=== PATIENT | female | born 1980 | race African-American/Black ===

== ENCOUNTER 2017-06-25 13:59 | Day surgery (SDC) | payer MEDICAID, SELFPAY ==
[2017-06-25] VITALS (7 sets, daily range): BP systolic 127–161; BP diastolic 72–110; PULSE 60–81; RESP 17–18; TEMP 35.9–36.8; O2SAT 98–100; BMI 28.7
--- NOTE | 2017-06-25 15:11 | ED.VISSUMM ---
- ER Visit Summary Date of Service: 06/25/17 Chief Complaint: Suprapubic discomfort and right-sided abdominal/flank pain with nausea, vomiting diarrhea History of Present Illness: The patient is a 37 F who reports abdominal pain that started last evening and had 2 episodes of vomiting and loose watery stools. She denies hematemesis, melena hematochezia. She denies any mucus in the stool. She does complain of dysuria and frequency without hematuria. She states her menses is normally the second week of the month. She does not give any symptoms of . She points to the suprapubic area as area of most discomfort and describes the discomfort as sharp severe with radiation to the back. She points to the right flank. There is no history of renal ureterolithiasis. She denies cough, shortness of breath or difficulty breathing. She denies any chest pain. She denies any rash. Physical Examination: Vital signs are remarkable for a blood pressure 161/110. She appears tachypnic. HEENT exam is remarkable for dry tongue and mucosa. Heart is regular without murmur, gallop or rub. S1 and S2 are normal. Lungs are clear to auscultation with good movement of air bilaterally. Abdomen is soft with tenderness there is no guarding or rebound tenderness. Bowel sounds are diminished. No evidence of umbilical or inguinal hernia. She complains of right CVA tenderness. There is no skin lesions noted. Neuro exam is nonfocal. Test Results: White count is normal with normal differential. Hemoglobin is 11.7, which is baseline. Electrode panel is unremarkable. Urine is a contaminated specimen. Patency test was positive. Serum quant hCG is approximately 1600. Transvaginal ultrasound reveals complex mass right adnexa with complex free fluid and no intrauterine noted. Findings are consistent with a ruptured ectopic . Emergency Department Course and Treatment: Since patient appears ill and clinically dry will administer 1 L of normal saline. She was treated with Zofran and morphine for her nausea and pain. Workup included a CBC, BMP, UA and test. Concerned this may represent renal/ureterolithiasis, urinary tract infection, possible urinary tract infection with obstructing stone, ovarian cyst, ectopic . Doubt appendicitis. Patient was made aware of ultrasound results. Dr. Mckeon who is on-call for METALWORKER was paged. Patient has been made n.p.o. She has not eaten since last night. She has been typed and screened. Treatment Plan: To the operating room Disposition: To the OR and disposition per Dr. Kimberly Mckeon Impression: Ruptured ectopic right adnexa This note was generated with [employer] dictation software. It may contain incorrect words, spelling, and punctuation that were not noted in review of the chart prior to signing ED Disposition - Plan for ED Patient: Chief Complaint: Abd Pain Referrals: Care Physician,No Primary [Primary Care Provider] -
[2017-06-25 15:15] LABS: Red Blood Cells-Urine 0 SEEN /hpf (0-5)
--- NOTE | 2017-06-25 15:15 | ED.DCSUM_ITS ---
- ER Visit Summary Date of Service: 06/25/17 Chief Complaint: Suprapubic discomfort and right-sided abdominal/flank pain with nausea, vomiting diarrhea History of Present Illness: The patient is a 37 F who reports abdominal pain that started last evening and had 2 episodes of vomiting and loose watery stools. She denies hematemesis, melena hematochezia. She denies any mucus in the stool. She does complain of dysuria and frequency without hematuria. She states her menses is normally the second week of the month. She does not give any symptoms of . She points to the suprapubic area as area of most discomfort and describes the discomfort as sharp severe with radiation to the back. She points to the right flank. There is no history of renal ureterolithiasis. She denies cough, shortness of breath or difficulty breathing. She denies any chest pain. She denies any rash. Physical Examination: Vital signs are remarkable for a blood pressure 161/110. She appears tachypnic. HEENT exam is remarkable for dry tongue and mucosa. Heart is regular without murmur, gallop or rub. S1 and S2 are normal. Lungs are clear to auscultation with good movement of air bilaterally. Abdomen is soft with tenderness there is no guarding or rebound tenderness. Bowel sounds are diminished. No evidence of umbilical or inguinal hernia. She complains of right CVA tenderness. There is no skin lesions noted. Neuro exam is nonfocal. Test Results: White count is normal with normal differential. Hemoglobin is 11.7, which is baseline. Electrode panel is unremarkable. Urine is a contaminated specimen. Patency test was positive. Serum quant hCG is approximately 1600. Transvaginal ultrasound reveals complex mass right adnexa with complex free fluid and no intrauterine noted. Findings are consistent with a ruptured ectopic . Emergency Department Course and Treatment: Since patient appears ill and clinically dry will administer 1 L of normal saline. She was treated with Zofran and morphine for her nausea and pain. Workup included a CBC, BMP, UA and test. Concerned this may represent renal/ureterolithiasis, urinary tract infection, possible urinary tract infection with obstructing stone , ovarian cyst, ectopic . Doubt appendicitis. Patient was made aware of ultrasound results. Dr. Mckeon who is on-call for OB /INSURANCE CLAIMS PROCESSOR was paged. Patient has been made n.p.o. She has not eaten since last night. She has been typed and screened. Treatment Plan: To the operating room Disposition: To the OR and disposition per Dr. Kimberly Mckeon Impression: Ruptured ectopic right adnexa This note was generated with [employer] dictation software. It may contain incorrect words, spelling, and punctuation that were not noted in review of the chart prior to signing ED Disposition - Plan for ED Patient: Chief Complaint: Abd Pain Referrals: Care Physician,No Primary [Primary Care Provider] -
[2017-06-25 15:19] LABS: Absolute Lymphocyte Count 2.78 X10^3/ul (0.83-4.51); Absolute Neutrophil Count 4.3 X10^3/uL (2.0-7.7); Basophil# 0.01 X10^3/uL; Basophil% 0.1 % (0-1); Hematocrit 36.7 % (37-47); Hemoglobin 11.7 g/dl (12.0-15.0); Lymphocyte # 2.78 X10^3/ul (4.0); Mean Corp Hgb Conc 31.9 g/gl (32-36); Mean Corpuscular Hgb 28.3 pg (27.0-32.0); Mean Corpuscular Volume 88.6 fL (81-99); Mean Platelet Vol. 8.9 fl (6.2-12.0); Monocyte# 0.43 X10^3/uL; Monocyte% 5.7 % (0-10); Neutrophil # 4.28 X10^3/uL (2.7-7.7); Neutrophil % 57.1 % (47-70); Platelet Count 277 K/mm3 (150-450); RBC Distribution Width CV 13.5 % (11.6-14.6); RBC Distribution Width SD 43.9 fl (35.1-43.9); Red Blood Count 4.14 M/mm3 (4.2-5.4); White Blood Count 7.5 K/mm3 (4.4-11.0)
[2017-06-25 15:21] LABS: Color, Urine Yellow (Yellow); Glucose, Dipstick Normal (Normal); Ketone-Dipstick Negative (Negative); Leukocyte Esterase-Dipstick 500 /ul (Negative); Nitrite-Dipstick Negative (Negative); Occult Blood-Urine 10 /ul (Negative); Protein-Dipstick 30 mg/dl (Negative); Specific Gravity, Urine 1.025 (1.002-1.030); Urine Bilirubin Dipstick Negative (Negative); Urine Clarity Clear (Clear); Urine Urobilinogen Normal (Normal)
[2017-06-25 15:25] LABS: POSITIVE COUNT NO; POSITIVE DIFFERENTIAL NO; POSITIVE MORPHOLOGY NO
[2017-06-25 15:30] LABS: Mucous, Urine 1+ /hpf (<or=2+); Squamous Epithelial Cells - UA 10-25 SEEN /hpf (5-10); White Blood Cells 0-5 SEEN /hpf (0-5)
[2017-06-25] MEDS: 0.9% Normal Saline 1,000 ML 1000 ML IV (15:36)
[2017-06-25] MEDS: Ondansetron 4 MG/2 ML Vial IV (15:36)
[2017-06-25 15:44] LABS: Anion Gap 9 (5-15); BUN 10 mg/dL (7-18); BUN/Creat Ratio 11.2 RATIO (10-20); Calcium,Total 8.5 mg/dL (8.5-10.1); Chloride 102 mmol/L (98-107); EST Glomerular Filtration Rate 76 mL/min (>60); Est Glom Filt Rate - Afr Amer 92 mL/min (>60); Estimated Creatinine Clearance 65.84 ml/min; Glucose 101 mg/dL (70-110); Potassium 3.9 mmol/L (3.5-5.1); Sodium Level 135 mmol/L (136-145)
[2017-06-25 16:06] LABS: Pregnancy, Serum, hCG Quali. POSITIVE Negative (0-9 Nonpreg)
[2017-06-25] MEDS: Dicyclomine 10 MG Capsule 20 MG PO (16:25)
--- NOTE | 2017-06-25 16:30 | US_ITS ---
US OB Transvaginal INDICATION: RLQ PAIN COMPARISON: None TECHNIQUE: Ultrasonographic grayscale and limited Doppler investigation of the pelvic structures by a transvaginal approach FINDINGS: The uterus measures 10 x 6.5 x 4.4 cm with a 1.2 cm endometrial stripe. The ovaries are not visualized. There is a heterogenous 6.2 x 4.1 x 4.3 cm mass in the right adnexal region. Moderate amount of complex free fluid is seen in the pelvis. US/Transvaginal w/Preg US IMPRESSION: Uterus appears grossly unremarkable. Ovaries are not visualized. Heterogeneous 6.2 x 4.1 x 4.3 cm mass in the right adnexal region. Its further evaluation with cross-sectional imaging is recommended. Etiology is uncertain. Moderate amount of complex free fluid. at 1724 Reported and signed by: Jeimy Watts MD Electronically Signed: Jeimy Watts MD at 16:23 EST Tel , Service support ,
[2017-06-25 16:34] LABS: hCG Titer Quant., Serum 1598 mIU/mL (<9 non-preg)
--- NOTE | 2017-06-25 17:57 | NURSING ---
DR VARGHESE IN ER
--- NOTE | 2017-06-25 18:30 | FAL_PTH ---
PATIENT: CARLO HAWK[place] [facility] [id number] AGE/SX: 37/F ROOM: RE06/25/[address]: Dr. Kimberly Mckeon MD : 1980 BED: DIS: 06/25/2017 SPEC #: [id number] RECD: 06/28/17 12:24 STATUS: FOUZIADevonte POSEY #: [id number] MARLENE: 06/25/17 18:[address]: Kimberly Mckeon DEPT: SURGICAL PATHOLOGY RECD BY: Jerry Dobson ENTERED: 06/28/17 12:24 SP TYPE: ECTOPIC OTHR DR: No Primary Care Phys Tissues: ECTOPIC PREG Procedures: Surgery Specimen Level IV HEADER OPERATION: Laparoscopic, removal ectopic PRE-OP DIAGNOSIS: Ruptured ectopic TISSUE SUBMITTED: Right fallopian tube MICROSCOPIC DIAGNOSIS Right fallopian tube, salpingectomy: Intraluminal chorionic villi and trophoblastic cells consistent with intratubular . AM:sofia 06/29/17 MICROSCOPIC DESCRIPTION Slides are reviewed. GROSS DESCRIPTION Received in fixative is one container labeled with the patient's name and designated right fallopian tube. The specimen consists of a fallopian tube measuring 4.5 cm in length and 1 cm in average diameter. A normal fimbriated end is present. Serial sections do not reveal mass lesions. The specimen is serially sectioned and totally submitted in two cassettes. / AM:sofia 06/28/17 TC:5 CPT: 04247
[2017-06-25] MEDS: Bupivacaine Mpf 0.5% 30 ML VIAL (19:14)
--- NOTE | 2017-06-25 19:48 | PCM.DC ---
You will use the following diet at home:: No restrictions Discharge Activity: May not drive while taking narcotic pain medications., May Shower, May Take a Tub Bath Return to work on:: 06/28/17 May resume sexual activity in: 1 week Lifting Restrictions: 20 lb or less for 2 wks. Call your doctor if you observe: Fever of 101 or Higher, Inability to have a bowel movement, Using more than one pad per hour, Calf discomfort, Uncontrolled pain Change Dressing in (Days):: 14 Remove Dressing in (days):: 14 Cleanse incision/area with: Soap & Water, Keep Dressing Clean & Dry Allergies/Adverse Reactions: Allergies naproxen Allergy (Verified 06/25/17 13:59) Rash shellfish derived Allergy (Verified 06/25/17 13:59) Swelling venom-honey bee [bee venom (honey bee)] Allergy (Verified 06/25/17 13:59) Swelling Medications to take at Discharge Docusate Sodium [Colace] 100 mg PO BID PRN PRN #30 cap 06/25/17 Hydrocodone/Acetaminophen [[place] 5-325 Tablet] 1 ea PO Q6H PRN PRN #10 tab 06/25/17 The following prescriptions were given: Hydrocodone/Acetaminophen [[place] 5-325 Tablet] 1 ea PO Q6H PRN PRN #10 tab PRN Reason: Mod-Severe Pain (4-10/10) Docusate Sodium [Colace] 100 mg PO BID PRN PRN #30 cap PRN Reason: Constipation Primary Care Physician: Care Physician,No Primary [Primary Care Provider] - Please Follow Up With: Kimberly Mckeon MD - [phone] When: 2 wk for postop check up Proposed Discharge Date: 06/25/17
--- NOTE | 2017-06-25 19:54 | DCINST_ITS ---
You will use the following diet at home:: No restrictions Discharge Activity: May not drive while taking narcotic pain medications., May Shower, May Take a Tub Bath Return to work on:: 06/28/17 May resume sexual activity in: 1 week Lifting Restrictions: 20 lb or less for 2 wks. Call your doctor if you observe: Fever of 101 or Higher, Inability to have a bowel movement, Using more than one pad per hour, Calf discomfort, Uncontrolled pain Change Dressing in (Days):: 14 Remove Dressing in (days):: 14 Cleanse incision/area with: Soap & Water, Keep Dressing Clean & Dry Allergies/Adverse Reactions: Allergies naproxen Allergy (Verified 06/25/17 13:59) Rash shellfish derived Allergy (Verified 06/25/17 13:59) Swelling venom-honey bee [bee venom (honey bee)] Allergy (Verified 06/25/17 13:59) Swelling Medications to take at Discharge Docusate Sodium [Colace] 100 mg PO BID PRN PRN #30 cap 06/25/17 Hydrocodone/Acetaminophen [[place] 5-325 Tablet] 1 ea PO Q6H PRN PRN #10 tab 06/25 The following prescriptions were given: Hydrocodone/Acetaminophen [[place] 5-325 Tablet] 1 ea PO Q6H PRN PRN #10 tab PRN Reason: Mod-Severe Pain (4-10/10) Docusate Sodium [Colace] 100 mg PO BID PRN PRN #30 cap PRN Reason: Constipation Primary Care Physician: Care Physician,No Primary [Primary Care Provider] - Please Follow Up With: Kimberly Mckeon MD - [phone] When: 2 wk for postop check up Proposed Discharge Date: 06/25/17
[2017-06-25] MEDS: Ibuprofen 400 MG Tablet PO (20:42)
[2017-06-25] MEDS: HYDROcodone Bitartrate/Apap 5/325 Tablet PO (20:43)
--- NOTE | 2017-06-26 08:53 | OP.PCM_ITS ---
Operative Report Date of Procedure: 06/25/17 Date of Procedure: 06/25/2017 PROCEDURE: Laparoscopic Right Salpingectomy Evacuation of hemoperitoneum PREOPERATIVE DIAGNOSIS: Ectopic , Right fallopian tube Hemoperitoneum POSTOPERATIVE diagnosis: Ectopic , Right fallopian tube Hemoperitoneum Surgeon: Kimberly Mckeon MD Anesthesia: general anesthesia. Yesenia Candelario MD EBL: minimal for the case Complications: None Drains: Red Pagan catheter used to drain the bladder prior to initiation of the case and after the case, for approximately 125 cc of clear yellow urine. Fluids: LR replacement Findings; Normal appearing, anteverted uterus. Left fallopian tube and ovary and R ovary are WNL. There is blood in the pelvis anterior to the uterus and posterior to the uterus, and at the R adnexa. The R fallopian tube is dilated. Ectopic , R fallopian tube. Gross inspection of bowel, omentum. liver edge WNL. Photos were taken of the uterus and ovaries before and after the right salpingectomy Narrative account: After the risks, benefits, alternatives of procedure had been reviewed with the patient, informed consent was obtained. The patient was taken back to the Operating room with an IV running. she was positioned on the operating table in dorsal supine position, where she was given general anesthesia. Once asleep she was repositioned to the dorsal lithotomy position and prepped and draped in the usual sterile fashion. A red Pagan catheter was used to drain the bladder prior to initiating the case. Attempted placement was made of a single toothed tenaculum with Sid cannula, but this could not be accomplished due to cervical stenosis. As the uterus was anteverted on exam under anesthesia , a sponge stick was placed into the vaginal to allow manipulation of the uterus and cervix during the case. Attention was then turned to the anterior abdominal wall where 0.5 % Marcaine with epinephrine was instilled at the suprapubic and infraumbilical skin and at a point midway between in the midline. Skin incisions were then created in the midline at the suprapubic skin and at the infraumbilical skin and midway between the two. While maintaining upward traction of the anterior abdominal wall a Veress needle was inserted through the umbilical incision into the peritoneal cavity. There was free drop of saline, low opening pressure and free flow of CO2 noted. Once the intraabdominal pressure had reached approximately 12 mm of mercury the Veress needle was removed and a bladeless 5 mm trocar was placed through infraumbilical skin incision into the peritoneal cavity. Correct placement was confirmed using the scope. Under direct visualization then with the patient in Trendelenburg position, a bladeless 5 mm trocar was inserted in through suprapubic skin incision into the peritoneal cavity and at a point midway between the infraumbilical and suprapubic trocars. The uterus as anteverted and both ovaries and the left fallopian tubes were WNL. The R fallopian tube was dilated and there was blood and clot in the pelvis and R adnexa due to the ectopic . The hemoperitoneum was partially evacuated to expose the R fallopian tube. The right fallopian tube was grasped and retracted medially and using a LigaSure device the fallopian tube was excised from the ovary and mesosalpinx. Excellent hemostasis was noted at the excision site and photos were taken. At this point there remained a large amount of clotted blood within the pelvis and a larger suction aspirator tip was needed. The suprapubic 5 mm trocar was removed and the incision extended to allow a 10-12 mm bladeless trocar. The trocar was placed into the abdominal cavity under direct visualization. The clot was then aspirated and the pelvic and abdomen irrigated to complete the evacuation of the blood from the pelvis. The R fallopian tube was brought through the suprapubic trocar and set aside for later pathology review. In a similar manner the L fallopian tube was aspirated with the larger suction aspiration tip, and removed from the abdominal cavity through the suprapubic trochar. The Right Fallopian tube was sent to pathology. Excellent hemostasis was noted by visualization of the pelvis, ovaries, and remaining mesosalpinx. Photos were taken of the uterus and ovaries and left fallopian tube. At this point the the procedure was terminated. The pneumoperitoneum was reduced and the instruments and trocars were removed from he the anterior abdominal wall skin. The suprapubic fascia was closed with 2-0 Vicryl. The skin incisions were closed with 4-0 Monocryl in a subcuticular fashion. Steristrips and OpSites were applied to the skin. The sponge stick was removed from the vagina. A red Pagan catheter was used again to drain the bladder after the case, and clear yellow urine returned. The patient was returned to dorsal supine position. She was awakened from general anesthesia. She was transferred to the recovery room bed in stable condition after tolerating the procedure well. Sponge, lap, needle and instrument counts were correct x two. Medications given preop and intraoperatively included: 10 cc of 1/2 % Marcaine with epinephrine --used as a subcutaneous block. For a complete listing of medications given preop and intraop , please see the anesthesia record.
--- NOTE | 2017-06-26 09:04 | HP.PCM_ITS ---
(1) Abdominal pain Status: Acute Qualifiers: Abdominal location: right lower quadrant Qualified Code(s): R10.31 - Right lower quadrant pain (2) Ectopic , tubal Status: Acute Qualifiers: Intrauterine status: without intrauterine Laterality: right Qualified Code(s): O00.101 - Right tubal without intrauterine History Date of Admission: 06/25/17 Gestational age: 7 History of this : 37 yo AB 2 female at 7 wk EGA by LMP during the first week of April. Presented to ED due to acute onset of pain in RLQ. Sent in by her employer. States pain improved after pain medication given in the emergency department. Would like to go home. Last PO intake was last night (Prior to presentation to ER) Tried to eat but nausea and vomited the meal. no fevers. Pertinent Past Medical History: Past Medical History: HTN but not on medications because they don't work. Denies any other medical problems or history. Past Surgical history: Negative. 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 Menarche at 14 yo and period reported as regular, but LMP first week of Apr 2017 Family History: HTN Cancers: grandfather with colon cancer; aunt with breast cancer; another aunt with stomach cancer Allergies naproxen Allergy (Verified 06/25/17 13:59) Rash shellfish derived Allergy (Verified 06/25/17 13:59) Swelling venom-honey bee [bee venom (honey bee)] Allergy (Verified 06/25/17 13:59) Swelling None. Smoking Status: Light Smoker (<10/day) Alcohol: Occasional Drug Use: none - denies Number of Fetus(es): 0 - No IUP noted. Adnexal mass noted in R adnexa Review of Systems Constitutional: Denies: Fever HEENT: Denies: Difficulty Hearing Cardiovascular: Denies: Chest Pain Respiratory: Denies: Shortness of Breath Gastrointestinal: Reports: Abdominal Pain - RLQ Genitourinary: Denies: Dysuria Psychiatric: Denies: Anxiety, Depression Physical Exam Vitals: Vital Signs Temp Pulse Resp BP Pulse Ox 97.6 F L 73 18 142/97 H 100 06/25/17 20:17 06/25/17 20:17 06/25/17 20:17 06/25/17 20:17 06/25/17 20:17 General: Alert, Oriented x3, Cooperative, No apparent distress Cardiovascular: Regular rate Lungs: Clear to auscultation Abdomen: Soft - tender in lower abdomen with some guarding. Extremities:: No clubbing, No cyanosis, No edema Cervix Dilation (cm): 0 - pelvic deferred d/t ectopic dx in ED and on sono Assessment/Plan Ectopic , RLQ. Quant 1598 mIU/ml SONO: uterus measures 10 x 6.5 x 4.4 cm with a 1.2 cm endometrial stripe. The ovaries are not visualized. NO IUP NOTED. There is a heterogenous 6.2 x 4.1 x 4.3 cm mass in the right adnexal region. Moderate amount of complex free fluid is seen in the pelvis. Advised pt of findings and need for surgery. Advised that this is a nonviable , growing in her fallopian tube and at risk of rupture, causing hemorrhage and even potential if not treated. Recommended L/S for evacuation of hemoperitoneum and R salpingectomy to remove the ectopic . R,B,alternatives discussed. Reviewed potential need for blood if severe hemorrhage noted. All questions answered to patient's satisfaction: Consents signed including to give blood if necessary to preserve life. Proceed with diagnostic laparoscopy, R salpingectomy, evacuation of blood/clot and ectopic . Advised re anticipated preop, operative and postop recovery including need for local bulk driver to take her home from hospital and need to be off work for a few days to recover
== END 2017-06-25 20:53 | disposition home or self-care (01) ==
LOC: ED 15:30 → SDC 18:08 → AC 18:09
PROVIDERS: Emergency Provider Emergency Medicine; Visit Provider Obstetrics & Gynecology
PROC: 10T24ZZ Resection of Products of Conception, Ectopic, Percutaneous Endoscopic Approach (ICD-10-PCS; CPT 59150; principal; 2017-06-25 18:30)
DX: O00.101 Right tubal pregnancy without intrauterine pregnancy (principal); K66.1 Hemoperitoneum; O10.911 Unspecified pre-existing hypertension complicating pregnancy, first trimester; O99.211 Obesity complicating pregnancy, first trimester; Z68.28 Body mass index [BMI] 28.0-28.9, adult; O99.331 Smoking (tobacco) complicating pregnancy, first trimester; F17.200 Nicotine dependence, unspecified, uncomplicated; Z3A.01 Less than 8 weeks gestation of pregnancy
CPT/HCPCS: 00840; 59151; 76817; 80048; 81001; 84702; 84703; 85025; 86850; 86900; 88305; 93976; 99282; J7030; A4216; J2405

== ENCOUNTER 2022-04-14 05:00 | Emergency (ER) | payer MEDICAID, SELFPAY ==
[2022-04-14 05:02] VITALS: BP 170/107; PULSE 59; RESP 10; TEMP 36; O2SAT 100; BMI 28.1
--- NOTE | 2022-04-14 05:15 | EDS_ITS ---
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 Does have a history of drug use in the past. States she smoked marijuana yesterday and she has had a history of cocaine use in the past. She denies but reportedly someone called 911 from her house since she was unresponsive after drug overdose. She denies any IV drugs. When the police arrived she was unresponsive. She was given Narcan 2 mg 3 times for a total 6 mg. She began waking up. There was a pill bottle of unknown pills around her. She denies any recent illness or complaints. Prior similar symptoms: No Recent Illness/Hospitalization: No PFSH PFSH Medical History no medical history no medical history Home Medications NK 04/14/22 [History Last Taken Unknown] Allergy/AdvReac Type Severity Reaction Status Date / Time naproxen Allergy Rash Verified 04/14/22 05:11 shellfish derived Allergy Swelling Verified 04/14/22 05:11 venom-honey bee Allergy Swelling Verified 04/14/22 05:11 [bee venom (honey bee)] Surgical History no surgical history no surgical history Social History Smoking Status: Current every day smoker tobacco type: cigarettes ROS ROS ED ROS Narrative Patient denies recent illness. Review of Systems ROS Unobtainable: Denies due to encephalopathy Constitutional Constitutional ED: Denies chills or fever(s) Eyes Eyes: Denies blurry vision ENT ENT ED: Denies ear pain Cardiovascular Cardiovascular: Denies chest pain Respiratory/Chest Respiratory/Chest: Denies cough or dyspnea Gastrointestinal Gastrointestinal: Reports nausea; Denies abdominal pain, constipation, diarrhea, melena or vomiting Genitourinary Genitourinary ED: Denies dysuria Musculoskeletal Musculoskeletal: Denies arthralgias Integumentary Denies abscess Neurologic Neurologic: Denies headache(s) Psychiatric Psychiatric: Denies anxiety or depression Endocrine Endocrinology: Denies cold intolerance Hematologic/Lymphatic Hematologic/Lymphatic: Denies easy bleeding Allergic/Immunologic Allergic/Immunologic ED: Denies mouth swelling or tongue swelling EXAM Physical Exam Narrative Exam Narrative: 42-year-old female no acute distress. Vital signs stable. She is afebrile. Her pulse ox is 100 % On room air no hypoxia. H EENT exam unremarkable atraumatic. Pupils round reactive light. Neck nontender no JVD. No lymphadenopathy. Lungs clear to auscultation bilaterally. Heart regular rhythm rate about 60 no murmur. Chest wall nontender. Abdomen soft nontender. Moving all 4 extremities. Nontender no edema. Skin is diaphoretic. Neurologically she is awake alert. Answering questions and following commands. Const Vital Signs: 04/14/22 05:02 04/14/22 05:12 04/14/22 05:16 Temperature 96.8 F L Temperature Source Temporal Pulse Rate 59 L 64 Respiratory Rate 10 L 18 Respiratory Effort Normal Non-Labored Respiratory Pattern Normal Blood Pressure 170/107 H 178/97 H Blood Pressure Mean 128 124 Pulse Ox 100 96 Oxygen Delivery Method Room Air Room Air Positive well nourished and well developed; Negative for obese, cachectic, contractures or unkempt General Appearance ED: well developed and NAD; Negative for unkempt, cachectic, contractures or pallor Nutritional Appearance: Negative for cachectic or obese HEENT Reports moist mucous membranes atraumatic; Negative for trauma or tenderness Eyes PERRL and EOMs intact bilaterally General Eye ED: Negative for pale conjunctiva or scleral icterus Neck no lymphadenopathy, supple and no JVD Thyroid: Negative for tender Chest Wall inspection of chest normal and palpation of chest normal Chest: Negative for other Resp normal respiratory effort and clear to auscultation bilaterally Effort and Inspection: Negative for retractions Auscultation: Negative for rales, rhonchi or wheezes Cardio regular rate, regular rhythm, S1 normal heart sound, S2 normal heart sound and no murmurs Rate: Negative for bradycardia or tachycardic Rhythm: Negative for abnormal rhythm Bruits: Negative for other GI soft to palpation, non-tender, non-distended and no masses Inspection: Negative for abdominal distention Auscultation: Negative for hyperactive bowel sounds Palpation: Negative for tender or guarding Back/Spine no CVA tenderness General Back: Negative for CVA tenderness Cervical Spine: Negative for cervical spine tenderness Thoracic Spine / Upper Back: Negative for thoracic spinal tenderness Lumbar Spine / Lower Back: Negative for lumbar spinal tenderness Coccyx: Negative for swelling Extremity General Extremety ED: Negative for edema or tenderness General Extremity: Negative for edema Neuro oriented x3 Sensorium / Orientation: alert, oriented to person, oriented to place and oriented to time; Negative for confused, lethargic or stuporous Speech: speech normal Motor Exam: strength 5/5 throughout Psych mental status grossly normal and thought process normal Appearance: Negative for unkempt Attitude: No belligerent, No agitated, No aggressive and No hostile Mood & Affect: Negative for depressed, anxious or tearful Skin Skin Narrative: Diaphoretic. No rashes. No track lundberg. General Skin Exam: Negative for jaundice or pallor Lesions: no lesions Rashes: no rashes Trauma: Negative for abrasion or laceration MDM MDM MDM Narrative Medical decision making narrative: 42-year-old with accidental opiate overdose. Treated by police with Narcan. Exam now is benign. Blood sugar be obtained. She will be observed and then I believe she is under arrest by the police. Patient doing well at 5:53 AM on repeat exam. She will be discharged to home. I believe she is under arrest and will be taken by the police to alf. Lab Data Attestation: I reviewed the patient's lab results. Lab results narrative: BGT was 158. Labs: Laboratory Results - last 24 hr 04/14/22 05:15 POC Glucose 158 H Discharge Plan Triage Chief Complaint: Overdose ED Provider: Cheng Wilson Dx/Rx/DC Orders Clinical Impression: Opiate overdose Instructions: ED Drug Abuse Prescriptions: No Action NK Primary Care Provider: Care Physician,No Primary Referrals: Myron Davis MD [Non-Staff] - As soon as possible Care Physician,No Primary [Primary Care Provider] - Activity Restrictions/Additional Instructions: Follow-up with your doctor [facility] [place]. Consider detox and drug counseling at [facility]. Disposition Disposition: Home, Self Care
[2022-04-14 05:16] VITALS: BP 178/97; PULSE 64; RESP 18; O2SAT 96
[2022-04-14 05:36] LABS: Bedside Glucose 158 mg/dL (74-106)
== END 2022-04-14 06:21 | disposition home or self-care (01) ==
LOC: ED 06:03
PROVIDERS: Emergency Provider Emergency Medicine; Visit Provider Emergency Medicine
DX: T40.2X1A Poisoning by other opioids, accidental (unintentional), initial encounter (principal); F17.210 Nicotine dependence, cigarettes, uncomplicated; F12.90 Cannabis use, unspecified, uncomplicated
CPT/HCPCS: 82962; 99285

== ENCOUNTER 2024-07-02 17:19 | Emergency (ER) | payer MEDICAID, SELFPAY ==
[2024-07-02 17:20] VITALS: BP 155/98; PULSE 122; RESP 20; TEMP 36.4; O2SAT 100; BMI 25.9
--- NOTE | 2024-07-02 17:52 | CT_ITS ---
PROCEDURE: BRAIN/HEAD WITHOUT CONTRAST REASON FOR EXAM: Intermittent right-sided headache for 1 week. TECHNIQUE: Contiguous axial scans of 3.75 mm slice thicknesses with sagittal and coronal reconstruction images. One or more dose reduction techniques were used (e.g., automated exposure control, adjustment of mA and/or kv according to patient size, use of iterative reconstruction technique). IV CONTRAST: Not given. COMPARISON: None. FINDINGS: No intraparenchymal hemorrhage. No abnormal areas of encephalomalacia. No mass effect or midline shift. Simmons-white matter differentiation is normal. Ventricles and cisterns are appropriately size for patient's age. No extra-axial fluid collections. Cerebellum and posterior fossa unremarkable. Paranasal sinuses normal. Mastoid air cells are normal. Calvarium unremarkable. Soft tissues unremarkable. CT/Brain/Head without Contrast IMPRESSION: No acute intracranial abnormalities are demonstrated. Reading Location: [facility]
--- NOTE | 2024-07-02 17:56 | EX.ED.DYSGE1 ---
HPI <SIGIFREDO Malone - Last Filed: 07/02/24 22:12> History of Present Illness Chief Complaint: Numb/Ting Narrative Narrative: 44-year-old female with past medical history of hypertension states over the last week she has had intermittent numbness/tingling to her right arm and right leg. She has episodes lasting about 15 minutes multiple times a day where her right arm feels tingling like it is asleep from the shoulder to the elbow. It includes the entire upper arm area but does not radiate below the elbow. She has the same tingling sensation in the right outer thigh. She has no associated weakness. Over the last 3 days she also complains of a left temporal headache. No visual change or speech changes. No nausea or vomiting. No fever chills neck pain or stiffness. She complains of feeling nauseated with decreased appetite but denies abdominal pain or diarrhea. PFSH <SIGIFREDO Malone - Last Filed: 07/02/24 22:12> PFSH Medical History no medical history Home Medications ?Medication ?Instructions ?Recorded ?Last Taken ?Type NK 04/14/22 Unknown History Allergy/AdvReac Type Severity Reaction Status Date / Time naproxen Allergy Rash Verified 04/14/22 05:11 shellfish derived Allergy Swelling Verified 04/14/22 05:11 venom-honey bee (bee venom Allergy Swelling Verified 04/14/22 05:11 (honey bee)) Social History Smoking Status: Current every day smoker tobacco type: cigarettes ROS <SIGIFREDO Malone Last Filed: 07/02/24 22:12> ROS ED ROS Narrative Constitutional: Negative for fever, chills, malaise. Eyes: Negative for visual change. CVS: Negative for chest pain. Respiratory: Negative for shortness of breath, cough. GI: Negative for abdominal pain, nausea, vomiting. Neuro: Positive for headache. EXAM <SIGIFREDO Malone Last Filed: 07/02/24 22:12> Physical Exam Narrative Exam Narrative: CONST: Patient sitting in no acute distress. EYES: Normal inspection. PERRL, EOMI. ENT: Normal inspection, moist mucous membranes. NECK: Normal inspection. No meningismus. RESP: No respiratory distress, CTAB. CVS: Regular rate and rhythm, no murmur, no gallop. ABD: Soft and nontender, no guarding or rebound, nondistended. SKIN: Color normal, no rash, warm, dry, intact. EXTREMITIES: Normal appearance, no pedal edema. NEURO: Alert and answering questions appropriately. 5/5 upper and lower extremity strength, normal sensation, normal finger-nose and [id number]. No drift. No dysarthria or aphasia. PSYCH: Normal affect. Const Vital Signs: 07/02/24 17:20 07/02/24 19:46 Temperature 97.5 F L Temperature Source Temporal Pulse Rate 122 H 105 H Respiratory Rate 20 H 18 Blood Pressure 155/98 H 137/86 H Blood Pressure Mean 117 103 Pulse Ox 100 99 Oxygen Delivery Method Room Air Room Air <Dr. Malou Noble DO - Last Filed: 07/11/24 12:41> Physical Exam Const Vital Signs: 07/02/24 17:20 07/02/24 19:46 Temperature 97.5 F L Temperature Source Temporal Pulse Rate 122 H 105 H Respiratory Rate 20 H 18 Blood Pressure 155/98 H 137/86 H Blood Pressure Mean 117 103 Pulse Ox 100 99 Oxygen Delivery Method Room Air Room Air MDM <SIGIFREDO Malone - Last Filed: 07/02/24 22:12> [facility] Narrative Medical decision making narrative: Patient reports intermittent paresthesias to her right arm in the humeral region and the right outer thigh. She also reports a few days of a headache. She is awake and alert in no distress. BP 155/98, HR 122, otherwise normal vital signs. She has a completely normal neurological exam with NIH of 0. Labs show normal white count of 7.7. Stable hemoglobin 11.8. Sodium is 129, otherwise normal chemistry panel. test negative. Her hyponatremia could be from her hydrochlorothiazide. CT brain shows no acute findings. I do not think her symptoms match with the stroke presentation. She does have a sister who has multiple sclerosis and I discussed the possibility of demyelinating disease. She will follow-up with her primary care doctor and neurology but was told to return if symptoms worsen. She was comfortable with this plan and discharged in stable condition. Lab Data Attestation: I reviewed the patient's lab results. Labs: Laboratory Results - last 24 hr 07/02/24 18:12 WBC 7.7 RBC 4.20 Hgb 11.8 L Hct 36.6 L MCV 87.1 MCH 28.1 MCHC 32.2 RDW Std Deviation 43.9 RDW Coeff of Randi 13.9 Plt Count 406 MPV 9.0 Immature Gran % (Auto) 0.100 Neut % (Auto) 53.0 Lymph % (Auto) 37.2 [place] % (Auto) 8.4 Eos % (Auto) 0.9 Baso % (Auto) 0.4 Absolute Neuts (auto) 4.1 Absolute Lymphs (auto) 2.88 Nucleated RBC % 0 Sodium 129 L Potassium 4.0 Chloride 96 L Carbon Dioxide 23.0 Anion Gap 10 BUN 11 Creatinine 0.88 Estim Creat Clear Calc 73.32 Est GFR (MDRD) Af Amer 90 Est GFR (MDRD) Non-Af 74 BUN/Creatinine Ratio 12.4 Glucose 77 Calcium 9.1 Serum , Qual NEGATIVE Radiography Diagnostic Testing: Clinical Impression(s) from Imaging Studies Brain CT 07/02/24 17:52 IMPRESSION: No acute intracranial abnormalities are demonstrated. Reading Location: [facility] <Dr. Malou Noble, DO - Last Filed: 07/11/24 12:41> [facility] MDM Narrative Medical decision making narrative: Patient reports intermittent paresthesias to her right arm in the humeral region and the right outer thigh. She also reports a few days of a headache. She is awake and alert in no distress. BP 155/98, HR 122, otherwise normal vital signs. She has a completely normal neurological exam with NIH of 0. Labs show normal white count of 7.7. Stable hemoglobin 11.8. Sodium is 129, otherwise normal chemistry panel. test negative. Her hyponatremia could be from her hydrochlorothiazide. CT brain shows no acute findings. I do not think her symptoms match with the stroke presentation. She does have a sister who has multiple sclerosis and I discussed the possibility of demyelinating disease. She will follow-up with her primary care doctor and neurology but was told to return if symptoms worsen. She was comfortable with this plan and discharged in stable condition. I have personally performed a face to face assessment of the patient and have reviewed the ANJEL Note. I performed a substantive portion of the visit including all aspects of the following. My jung findings include: Patient is a 44-year-old female with history of hypertension presenting with intermittent numbness and tingling of her right arm, her right thigh as well as a left-sided headache. This been going on for 1 week and headaches been going on for 3 days. It did not always occur at the same time. They will generalized about 15 minutes at a time. Patient sister does have MS but patient denies any history of any MS or neurologic diagnosis. Does report significant increase stress at home recently. Patient is have hypertension for which she takes hydrochlorothiazide for. Vital signs significant for mild hypertension in the ER with initial blood pressure 155/96 but does normalize in the ER without further intervention. She is tachycardic on arrival with a heart rate of 122 and a repeat is 105. Patient is well-appearing on exam. As she has a normal neurologic exam with normal sensation in all extremities. Normal strength with no drift. Normal coordination. No slurred speech. No facial droop appreciated. Lungs are clear to auscultation bilaterally. No peripheral edema appreciated. CT of the brain is obtained does not show any acute process. Given that this is been going on for a week have a much lower suspicion for TIA or stroke especially with no subacute or acute process on the CT. No signs of intracranial hemorrhage. CBC largely normal. BMP did show hyponatremia with sodium of 129 (but this is associated with her HCTZ) but otherwise labs are normal. Patient given IV fluids in the emergency room for hyponatremia. Did discuss that given atypical neurologic symptoms there is always a concern for possible MS especially with her family history. Will be given referral for neurology and encouraged also follow-up with her primary care doctor for recheck on her electrolytes. Patient is counseled that without MRI we cannot definitively rule out any of these processes. She states she does not think she is having a stroke and is not should admission at this time. Is given very close return precautions. Lab Data Labs: Laboratory Results - last 24 hr 07/02/24 18:12 WBC 7.7 RBC 4.20 Hgb 11.8 L Hct 36.6 L MCV 87.1 MCH 28.1 MCHC 32.2 RDW Std Deviation 43.9 RDW Coeff of Randi 13.9 Plt Count 406 MPV 9.0 Immature Gran % (Auto) 0.100 Neut % (Auto) 53.0 Lymph % (Auto) 37.2 [place] % (Auto) 8.4 Eos % (Auto) 0.9 Baso % (Auto) 0.4 Absolute Neuts (auto) 4.1 Absolute Lymphs (auto) 2.88 Nucleated RBC % 0 Sodium 129 L Potassium 4.0 Chloride 96 L Carbon Dioxide 23.0 Anion Gap 10 BUN 11 Creatinine 0.88 Estim Creat Clear Calc 73.32 Est GFR (MDRD) Af Amer 90 Est GFR (MDRD) Non-Af 74 BUN/Creatinine Ratio 12.4 Glucose 77 Calcium 9.1 Serum , Qual NEGATIVE Radiography Diagnostic Testing: Clinical Impression(s) from Imaging Studies Brain CT 07/02/24 17:52 IMPRESSION: No acute intracranial abnormalities are demonstrated. Reading Location: [facility] Discharge Plan Triage Chief Complaint: Numb/Ting ED Midlevel Provider: Jasmin Bah ED Provider: Malou Noble Dx/Rx/DC Orders Clinical Impression: Headache, Paresthesia, Acute hyponatremia Instructions: ED Paraesthesias Prescriptions: No Action NK Primary Care Provider: Care Physician,No Primary Referrals: Care Physician,No Primary [Primary Care Provider] - Activity Restrictions/Additional Instructions: Your sodium level is low which could be from the hydrochlorothiazide. I recommend you follow-up with your primary care doctor this week. You also need to call the neurologist for an appointment for evaluation of the tingling in her right arm and leg. You need further testing to rule out other diseases such as multiple sclerosis. If your symptoms worsen please come back to the ER. Dr. Nestor Washburn, neurologist [place] [facility] [address] [place] [address] Print Language: Brazilian Disposition Disposition: Home, Self Care Discharge Date/Time: 07/02/24 21:00
[2024-07-02 18:34] LABS: Absolute Lymphocyte Count 2.88 X10^3/uL (0.83-4.51); Absolute Neutrophil Count 4.1 X10^3/uL (2.0-7.7); Basophil# 0.03 X10^3/uL; Basophil% 0.4 % (0-1); Eosinophil# 0.07 X10^3/uL; Eosinophils% 0.9 % (0-5); Hematocrit 36.6 % (37-47); Hemoglobin 11.8 g/dL (12.0-15.0); Lymphocyte # 2.88 X10^3/ul (0.83-4.51); Lymphocyte % 37.2 % (19-41); Mean Corp Hgb Conc 32.2 g/dL (32-36); Mean Corpuscular Hgb 28.1 pg (27.0-32.0); Mean Corpuscular Volume 87.1 fL (81-99); Monocyte# 0.65 X10^3/uL; Monocyte% 8.4 % (0-10); NRBC Flagged by Analyzer 0 % (0-5); Platelet Count 406 K/mm3 (150-450); RBC Distribution Width CV 13.9 % (11.6-14.6); RBC Distribution Width SD 43.9 fl (35.1-43.9); White Blood Count 7.7 K/mm3 (4.4-11.0)
[2024-07-02 18:40] LABS: Internal QC Validated? YES +Cl - CLEAR BKGD; Pregnancy, Serum, hCG Quali. NEGATIVE Negative
[2024-07-02 18:47] LABS: Anion Gap 10 (5-15); BUN 11 mg/dL (7-18); BUN/Creat Ratio 12.4 RATIO (10-20); Calcium,Total 9.1 mg/dL (8.5-10.1); Chloride 96 mmol/L (98-107); Creatinine, Serum 0.88 mg/dL (0.55-1.02); EST Glomerular Filtration Rate 74 mL/min (>60); Est Glom Filt Rate - Afr Amer 90 mL/min (>60); Estimated Creatinine Clearance 73.32 ml/min; Glucose 77 mg/dL (74-106); Sodium Level 129 mmol/L (136-145)
[2024-07-02] MEDS: 0.9% Normal Saline (1000mL) 1,000 ML 999 ML IV (19:44)
[2024-07-02 19:46] VITALS: BP 137/86; PULSE 105; RESP 18; O2SAT 99
--- NOTE | 2024-07-02 22:03 | ED.RN ---
Patient left ER without a nurse checking to see if IV was out. No IV noted on bed. Fluids were unhooked. Attempted to call the patient, it went straight to voicemail and was unable to leave a message. Attempted to call mother her next of kin. Unable to leave a voicemail. This nurse notified HRO Jeremias who then went to the address listed on patient's chart. It was the mother's residence where he was told that the patient was not welcomed there and her belongings were on the front porch. Multiple attempts made to notify and locate patient.
== END 2024-07-02 21:00 | disposition home or self-care (01) ==
PROVIDERS: Physician Assistant; Emergency Provider Emergency Medicine; Visit Provider Emergency Medicine
DX: R20.2 Paresthesia of skin (principal); E87.1 Hypo-osmolality and hyponatremia; R51.9 Headache, unspecified; I10 Essential (primary) hypertension; F17.210 Nicotine dependence, cigarettes, uncomplicated; Z79.899 Other long term (current) drug therapy
CPT/HCPCS: 70450; 80048; 84703; 85025; 96360; 99283; A4216

== ENCOUNTER → 2024-11-01 | Outpatient (CLI) | payer MEDICAID, SELFPAY ==
[2024-11-01 12:40] LABS: Absolute Lymphocyte Count 3.06 X10^3/uL (0.83-4.51); Absolute Neutrophil Count 3.8 X10^3/uL (2.0-7.7); Basophil# 0.02 X10^3/uL; Basophil% 0.3 % (0-1); Eosinophil# 0.01 X10^3/uL; Eosinophils% 0.1 % (0-5); Hemoglobin 10.9 g/dL (12.0-15.0); Lymphocyte # 3.06 X10^3/ul (0.83-4.51); Lymphocyte % 41.3 % (19-41); Mean Corpuscular Hgb 28.2 pg (27.0-32.0); Mean Corpuscular Volume 85.5 fL (81-99); Monocyte# 0.48 X10^3/uL; Monocyte% 6.5 % (0-10); NRBC Flagged by Analyzer 0 % (0-5); Neutrophil # 3.82 X10^3/uL (2.7-7.7); Neutrophil % 51.5 % (47-70); Platelet Count 385 K/mm3 (150-450); RBC Distribution Width CV 13.1 % (11.6-14.6); Red Blood Count 3.86 M/mm3 (4.2-5.4); White Blood Count 7.4 K/mm3 (4.4-11.0)
[2024-11-01 13:09] LABS: Hemoglobin A1c 5.5 % (<=5.6)
[2024-11-01 13:17] LABS: AST(SGOT) 38 U/L (<=31); Alanine Aminotransfer ALT/SGPT 21 U/L (<=34); Albumin, Serum 4.5 g/dL (3.5-5.0); Alkaline Phosphatase 80 U/L (35-104); Anion Gap 14 (5-15); BUN 10 mg/dL (4-19); BUN/Creat Ratio 14.1 RATIO (10-20); Calcium,Total 9.3 mg/dL (7.6-11.0); Carbon Dioxide 21.2 mmol/L (21.0-32.0); Chloride 102 mmol/L (98-108); Cholesterol 163 mg/dL (<=200); Creatinine, Serum 0.72 mg/dL (0.70-1.20); EST Glomerular Filtration Rate 107 (>60); Globulin 4.3 g/dL (2.2-4.2); Glucose 79 mg/dL (70-99); High Density Lipoprotein 68 mg/dL; Low Density Lipoprotein Calc. 84 mg/dL; Potassium 3.5 mmol/L (3.3-5.1); Protein, Total 8.8 g/dL (5.9-8.4); Sodium Level 137 mmol/L (133-145); Thyroid Stim Hormone (TSH) 0.622 uIU/mL (0.300-4.200); Total Bilirubin 0.43 mg/dL (0.00-1.30); Triglycerides 54 mg/dL; Very Low Density Lipoprotein 11 mg/dL (5-40); cholesterol:hdl ratio screen 2.38
== END | disposition home or self-care (01) ==
LOC: VSLAB 09:37
DX: I10 Essential (primary) hypertension (principal); Z13.1 Encounter for screening for diabetes mellitus; Z13.220 Encounter for screening for lipoid disorders
CPT/HCPCS: 36415; 80053; 80061; 83036; 84443; 85025

== ENCOUNTER → 2025-03-19 | Outpatient (CLI) | payer OTHER, MEDICAID, SELFPAY ==
--- OUTSIDE RECORDS SUMMARY | 2025-03-19 11:51 | XMS RPT_ITS | CCD ---
Author Organization [facility] Care Team Providers Care [employer] Supervisor Name Role Phone SAMEERA, CHELY (BONDING MOLDER) Unavailable Unavailable SAMEERA, CHELY (BONDING MOLDER) Unavailable Unavailable SAMEERA, CHELY (BONDING MOLDER) Unavailable Unavailable Beam AIR DUCT MECHANIC-C, Zebulun Primary Care Provider [phone] Beam AIR DUCT MECHANIC-C, Zebulun Attending Provider Beam VSC, Zebulun Primary Care Unavailable Beam VSC, Zebulun Attending Unavailable Malou Noble Attending Unavailable Care Physician, No Primary Primary Care Unava ilable Allergies Allergy Classification Reported Allergen(s) Allergy Type Date of Onset Reaction(s) Facility (1 source) meloxicam; Translations: [MELOXICAM] Drug Allergy 08-25-2013 [facility] Repository (3 sources) naproxen; Translations: [NAPROXEN] Drug Allergy 04-19-2008 Leonel JUÁREZ [facility] Repository (2 sources) Shellfish; Translations: [shellfish derived] Allergy to substance 2022 [facility] (1 source) venom-honey bee Allergy to substance 2022 Swelling [facility] (1 source) venom-honey bee Drug allergy (disorder) 2022 [facility] Repository Problems Active Problems Problem Classification Problem Date Documented Da te Episodic/Chronic Abdominal pain (1 source) Abdominal pain; Translations: [Unspecified abdominal pain] 06-26-2017 Episodic Ectopic (1 source) Tubal ; Translations: [Unspecified tubal without intrauterine ] 06-26-2017 Episodic Essential hypertension (1 source) Essential (primary) hypertension; Translations: [Essential (primary) hypertension] Onset: 01-15-2025 Chronic Fluid and electrolyte disorders (1 source) Acute hyponatremia; Translations: [Hypo-osmolality and hyponatremia] 07-10-2024 Episodic Headache; including migraine (1 source) Headache; Translations: [Headache] 07-10-2024 Episodic Nonmalignant breast conditions (2 sources) Nipple discharge; Translations: [Mastodynia] Onset: 01-04-2018 Episodic Other nervous system disorders (1 source) Paresthesia; Translations: [Paresthesia of skin] 07-10-2024 Episodic Poisoning by other medications and drugs (1 source) Overdose of opiate; Translations: [Poisoning by unspecified narcotics, accidental (unintentional), initial encounter] 04-22-2022 Episodic Past or Other Problems Problem Classification Problem Date Documented Da te Episodic/Chronic Other nervous system disorders (1 source) Paresthesia of skin; Translations: [Paresthesia of skin] Onset: 07-21-2024 Episodic Results Test Name Value Interpretation Reference Range Facility Absolute lymphocyte countOrd ered By: [facility] on 11-01-2024 Lymphocytes Auto (Unsp spec) [#/Vol] 3.06 10*3/uL 0.83-4.51 [facility] Absolute neutrophil countOrd ered By: [facility] on 11-01-2024 Neutrophils (Bld) [#/Vol] 3.8 10*3/uL 2.0-7.7 [facility] Anion gap in Serum or Plasma Ordered By: [facility] on 11-01-2024 Anion gap [Moles/Vol] 14 mmol/L 5-15 [facility] Automated lymphocyte count a s percentage of total leukocytesOrdered By: [facility] on 11-01-2024 Lymphocytes/100 WBC Auto (Unsp spec) 41.3 % High 19-41 [facility] BUN/creatinine ratioOrdered By: [facility] on 11-01-2024 Urea nitrogen/Creatinine [Mass ratio] 14.1 mg/mg 10-20 [facility] Basophil percentageOrdered B y: [facility] on 11-01-2024 Basophils/100 WBC (Bld) 0.3 % 0-1 [facility] Bilirubin, totalOrdered By: [facility] on 11-01-2024 Bilirubin [Mass/Vol] 0.43 mg/dL 0.00-1.30 [facility] CBC W/Diff, Automatedon 06-0 4-2024 Absolute Lymph 3.06 X10 3/uL Normal 0.83-4.51 [facility] Comment on above: Performed By: #### L 500.4050, L501.9985, L501.9520, L500.4100, L100.0100 #### [facility] [address] [place], [address] Absolute Neut 3.8 X10 3/uL Normal 2.0-7.7 [facility] Comment on above: Performed By: #### L 500.4050, L501.9985, L501.9520, L500.4100, L100.0100 #### [facility] [address] [place], [address] Basophils/100 WBC (Bld) 0.3 % Normal 0-1 [facility] Comment on above: Performed By: #### L 500.4050, L501.9985, L501.9520, L500.4100, L100.0100 #### [facility] [address] [place], [address] Eosinophils/100 WBC (Bld) 0.1 % Normal 0-5 [facility] Comment on above: Performed By: #### L 500.4050, L501.9985, L501.9520, L500.4100, L100.0100 #### [facility] [address] [place], [address] Erythrocyte distribution width (RBC) [Ratio] 13.1 % Normal 11.6-14.6 [facility] Comment on above: Performed By: #### L 500.4050, L501.9985, L501.9520, L500.4100, L100.0100 #### [facility] [address] [place], [address] Hematocrit (Bld) [Volume fraction] 33.0 % Low 37-47 [facility] Comment on above: Performed By: #### L 500.4050, L501.9985, L501.9520, L500.4100, L100.0100 #### [facility] [address], [address] Hemoglobin (Bld) [Mass/Vol] 10.9 g/dL Low 12.0-15.0 [facility] Comment on above: Performed By: #### L 500.4050, L501.9985, L501.9520, L500.4100, L100.0100 #### [facility] [address] [place], [address] IG% 0.300 Normal 0.0-0.9 [facility] Comment on above: Result Comment: IG% - Immature Granulocytes (promyelocytes, myelocytes and metamyelocytes) > 1% indicates that a LEFT SHIFT is Present. Performed By: #### L 500.4050, L501.9985, L501.9520, L500.4100, L100.0100 #### [facility] [address], [address] Lymphocytes/100 WBC (Bld) 41.3 % High 19-41 [facility] Comment on above: Performed By: #### L 500.4050, L501.9985, L501.9520, L500.4100, L100.0100 #### [facility] [address], [address] MCH (RBC) [Entitic mass] 28.2 pg Normal 27.0-32.0 [facility] Comment on above: Performed By: #### L 500.4050, L501.9985, L501.9520, L500.4100, L100.0100 #### [facility] [address] [place], [address] MCHC (RBC) [Mass/Vol] 33.0 g/dL Normal 32-36 [facility] Comment on above: Performed By: #### L 500.4050, L501.9985, L501.9520, L500.4100, L100.0100 #### [facility] [address], [address] MCV (RBC) [Entitic vol] 85.5 fL Normal 81-99 [facility] Comment on above: Performed By: #### L 500.4050, L501.9985, L501.9520, L500.4100, L100.0100 #### [facility] [address], [address] Monocytes/100 WBC (Bld) 6.5 % Normal 0-10 [facility] Comment on above: Performed By: #### L 500.4050, L501.9985, L501.9520, L500.4100, L100.0100 #### [facility] [address] [place], [address] Neutrophils/100 WBC (Bld) 51.5 % Normal 47-70 [facility] Comment on above: Performed By: #### L 500.4050, L501.9985, L501.9520, L500.4100, L100.0100 #### [facility] [address], [address] Nucleated RBC (Bld) [#/Vol] 0 10*3/uL Normal 0-5 [facility] Comment on above: Performed By: #### L 500.4050, L501.9985, L501.9520, L500.4100, L100.0100 #### [facility] [address] [place], [address] Platelet mean volume (Bld) [Entitic vol] 9.0 fL Normal 6.2-12.0 [facility] Comment on above: Performed By: #### L 500.4050, L501.9985, L501.9520, L500.4100, L100.0100 #### [facility] [address] [place], [address] Platelets (Bld) [#/Vol] 385 10*3/uL Normal 150-450 [facility] Comment on above: Performed By: #### L 500.4050, L501.9985, L501.9520, L500.4100, L100.0100 #### [facility] [address] [place], [address] RBC (Bld) [#/Vol] 3.86 10*6/uL Low 4.2-5.4 [facility] Comment on above: Performed By: #### L 500.4050, L501.9985, L501.9520, L500.4100, L100.0100 #### [facility] [address] [place], [address] RDW SD 40.0 fl Normal 35.1-43.9 [facility] Comment on above: Performed By: #### L 500.4050, L501.9985, L501.9520, L500.4100, L100.0100 #### [facility] [address] [place], [address] WBC (Bld) [#/Vol] 7.4 10*3/uL Normal 4.4-11.[address] [facility] Comment on above: Performed By: #### L 500.4050, L501.9985, L501.9520, L500.4100, L100.0100 #### [facility] [address] [place], [address] Calculated very low density lipoprotein (VLDL) cholesterol measurementOrdered By: Delfina Yoder on 11-01-2024 Calculated very low density lipoprotein (VLDL) cholesterol measurement 11 mg/dL 5-40 [facility] Carbon dioxide, total [Moles /volume] in Central venous bloodOrdered By: Delfina Yoder on 11-01-2024 CO2 [Moles/Vol] 21.2 mmol/L 21.0-32.0 [facility] Chloride assayOrdered By: Adair Yoder on 11-01-2024 Chloride [Moles/Vol] 102 mmol/L 98-108 [facility] Comprehensive Metabolic Prof ilon 11-01-2024 Albumin [Mass/Vol] 4.5 g/dL Normal 3.5-5.[address] [facility] Comment on above: Performed By: #### L 500.4050, L501.9985, L501.9520, L500.4100, L100.0100 #### [facility] [address] [place], [address] Albumin/Globulin [Mass ratio] 1.0 {ratio} Normal 0.9-2.4 [facility] Comment on above: Performed By: #### L 500.4050, L501.9985, L501.9520, L500.4100, L100.0100 #### [facility] [address] [place], [address] ALK PHOS 80 U/L Normal 35-104 [facility] Comment on above: Performed By: #### L 500.4050, L501.9985, L501.9520, L500.4100, L100.0100 #### [facility] [address] [place], [address] ALT [Catalytic activity/Vol] 21 U/L Normal <=34 [facility] Comment on above: Performed By: #### L 500.4050, L501.9985, L501.9520, L500.4100, L100.0100 #### [facility] [address] [place], [address] AST [Catalytic activity/Vol] 38 U/L High <=31 [facility] Comment on above: Performed By: #### L 500.4050, L501.9985, L501.9520, L500.4100, L100.0100 #### [facility] [address] [place], [address] Bilirubin [Mass/Vol] 0.43 mg/dL Normal 0.00-1.30 [facility] Comment on above: Performed By: #### L 500.4050, L501.9985, L501.9520, L500.4100, L100.0100 #### [facility] [address] [place], [address] BUN/CRE 14.1 RATIO Normal 10-20 [facility] Comment on above: Performed By: #### L 500.4050, L501.9985, L501.9520, L500.4100, L100.0100 #### [facility] [address] [place], [address] Calcium [Mass/Vol] 9.3 mg/dL Normal 7.6-11.[address] [facility] Comment on above: Performed By: #### L 500.4050, L501.9985, L501.9520, L500.4100, L100.0100 #### [facility] [address] [place], [address] Chloride [Moles/Vol] 102 mmol/L Normal 98-108 [facility] Comment on above: Performed By: #### L 500.4050, L501.9985, L501.9520, L500.4100, L100.0100 #### [facility] [address] [place], [address] CO2 [Moles/Vol] 21.2 mmol/L Normal 21.0-32.0 [facility] Comment on above: Performed By: #### L 500.4050, L501.9985, L501.9520, L500.4100, L100.0100 #### [facility] [address] [place], [address] Creatinine [Mass/Vol] 0.72 mg/dL Normal 0.70-1.20 [facility] Comment on above: Performed By: #### L 500.4050, L501.9985, L501.9520, L500.4100, L100.0100 #### [facility] [address] [place], [address] GAP 14 Normal 5-15 [facility] Comment on above: Performed By: #### L 500.4050, L501.9985, L501.9520, L500.4100, L100.0100 #### [facility] [address] [place], [address] GFR/1.73 sq M.predicted among non-blacks MDRD (S/P/Bld) [Vol rate/Area] 107 mL/min/{1.73_m2} Normal >60 [facility] Comment on above: Result Comment: mL/m in/1.73m2 CKD-EPI Creatinine Equation (2020) Performed By: #### L 500.4050, L501.9985, L501.9520, L500.4100, L100.0100 #### [facility] [address] [place], [address] Globulin (S) [Mass/Vol] 4.3 g/dL High 2.2-4.2 [facility] Comment on above: Performed By: #### L 500.4050, L501.9985, L501.9520, L500.4100, L100.0100 #### [facility] [address] [place], [address] Glucose [Mass/Vol] 79 mg/dL Normal 70-[address] [facility] Comment on above: Performed By: #### L 500.4050, L501.9985, L501.9520, L500.4100, L100.0100 #### [facility] [address] [place], [address] Potassium [Moles/Vol] 3.5 mmol/L Normal 3.3-5.1 [facility] Comment on above: Performed By: #### L 500.4050, L501.9985, L501.9520, L500.4100, L100.0100 #### [facility] [address] [place], [address] Sodium [Moles/Vol] 137 mmol/L Normal 133-[address] [facility] Comment on above: Performed By: #### L 500.4050, L501.9985, L501.9520, L500.4100, L100.0100 #### [facility] [address] [place], [address] T PROT 8.8 g/dL High 5.9-8.4 [facility] Comment on above: Performed By: #### L 500.4050, L501.9985, L501.9520, L500.4100, L100.0100 #### [facility] [address] [place], [address] Urea nitrogen [Mass/Vol] 10 mg/dL Normal 4-19 [facility] Comment on above: Performed By: #### L 500.4050, L501.9985, L501.9520, L500.4100, L100.0100 #### [facility] [address] [place], [address] Eosinophil percentageOrdered By: Zebulun Beam on 11-01-2024 Eosinophils/100 WBC (Bld) 0.1 % 0-5 [facility] Erythrocyte distribution wid th ratioOrdered By: Zebulun Beam on 11-01-2024 Erythrocyte distribution width (RBC) [Ratio] 13.1 % 11.6-14.6 [facility] Erythrocyte distribution wid th standard deviationOrdered By: Zebulun Beam on 11-01-2024 Erythrocyte distribution width (RBC) [Ratio] 40.0 fl 35.1-43.9 [facility] Glomerular filtration rate ( GFR) estimation/1.73 sq m using serum, plasma, or whole bOrdered By: Delfina Yoder on 11-01-2024 GFR/1.73 sq M.predicted among non-blacks MDRD (S/P/Bld) [Vol rate/Area] 107 mL/min/{1.73_m2} >60 [facility] Comment on above: mL/min/1.73m2 CKD-EP I Creatinine Equation (2020) Hematocrit Auto (Bld) [Volum e fraction]Ordered By: Delfina Yoder on 11-01-2024 Hematocrit (Bld) [Volume fraction] 33.0 % Low 37-47 [facility] Hemoglobin A1con 11-01-2024 HbA1c (Bld) [Mass fraction] 5.5 % Normal <=5.6 [facility] Comment on above: Result Comment: Norm al < 5.7 % Prediabetic 5.7 - 6.4 % Diabetic >or= 6.5 % Please note range changes. Performed By: #### L 500.4050, L501.9985, L501.9520, L500.4100, L100.0100 #### [facility] [address] [facility] [place], [place], [id number] Hemoglobin A1c percentageOrd ered By: Delfina Yoder on 11-01-2024 HbA1c (Bld) [Mass fraction] 5.5 % <5.7 [facility] Comment on above: Normal < 5.7 % Predi abetic 5.7 - 6.4 % Diabetic >or= 6.5 % Please note range changes. Hemoglobin measurementOrdere d By: Delfina Yoder on 11-01-2024 Hemoglobin (Bld) [Mass/Vol] 10.9 g/dL Low 12.0-15.0 [facility] Immature granulocytes/100 WB C Auto (Bld)Ordered By: Delfina Yoder on 11-01-2024 Immature granulocytes/100 WBC (Bld) 0.300 % 0.0-0.9 [facility] Comment on above: IG% - Immature Granu locytes (promyelocytes, myelocytes and metamyelocytes) > 1% indicates that a LEFT SHIFT is Present. LDL calc ser/plasOrdered By: Delfina Beam on 11-01-2024 Cholesterol in LDL [Mass/Vol] 84 mg/dL [facility] Comment on above: Cjxmvyuojr=588-958 m g/dL & Higher Qwvw=385 mg/dL or greater Laboratory - Chemistry and C hemistry - challengeOrdered By: Delfina Beam on 11-01-2024 AST [Catalytic activity/Vol] 38 U/L High <32 [facility] Lipid Profileon 11-01-2024 CHOL:HDL 2.38 Normal [facility] Comment on above: Performed By: #### L 500.4050, L501.9985, L501.9520, L500.4100, L100.0100 #### [facility] [address] [place], [address] Cholesterol [Mass/Vol] 163 mg/dL Normal <=200 [facility] Comment on above: Result Comment: Chol esterol level, Desirable <200 mg/dL Borderline high cholesterol 200-239 mg/dL High cholesterol >=240 mg/dL Recommendations of the NCEP Adult Treatment Panel for the following risk-cutoff thresholds for the [place] population. Performed By: #### L 500.4050, L501.9985, L501.9520, L500.4100, L100.0100 #### [facility] [address] [place], [address] Cholesterol in HDL [Mass/Vol] 68 mg/dL Normal [facility] Comment on above: Result Comment: [place] on[place] Cholesterol Education Program (NCEP) guidelines: <40 mg/dL: Low HDL-cholesterol (major risk factor for CHD) >= 60 mg/dL: High HDL-cholesterol (negative risk factor for CHD) HDL-cholesterol is affected by a number of factors, e.g. smoking, exercise, hormones, sex and age. Performed By: #### L 500.4050, L501.9985, L501.9520, L500.4100, L100.0100 #### [facility] [address] [place], [address] Cholesterol in LDL [Mass/Vol] 84 mg/dL Normal [facility] Comment on above: Result Comment: Bord xmgztq=810-362 mg/dL Higher Bbla=544 mg/dL or greater Performed By: #### L 500.4050, L501.9985, L501.9520, L500.4100, L100.0100 #### [facility] [address] [place], [address] Cholesterol in VLDL [Mass/Vol] 11 mg/dL Normal 5-40 [facility] Comment on above: Performed By: #### L 500.4050, L501.9985, L501.9520, L500.4100, L100.0100 #### [facility] [address] [place], [address] Triglyceride [Mass/Vol] 54 mg/dL Normal [facility] Comment on above: Result Comment: The drugs N-Acetylcysteine and Metamizole may falsely depress this assay. Normal range: <150 mg/dL Borderline High: 150-199 mg/dL High: 200-499 mg/dL Very High: >500 mg/dL Performed By: #### L 500.4050, L501.9985, L501.9520, L500.4100, L100.0100 #### [facility] [address] [place], [address] MCV (mean corpuscular volume ) determinationOrdered By: Zebulun Beam on 11-01-2024 MCV (RBC) [Entitic vol] 85.5 fL 81-99 [facility] Mean corpuscular hemoglobin (MCH) determinationOrdered By: Zebulun Beam on 11-01-2024 MCH (RBC) [Entitic mass] 28.2 pg 27.0-32.0 [facility] Mean corpuscular hemoglobin concentration (MCHC) determinationOrdered By: Zebulun Beam on 11-01-2024 MCHC (RBC) [Mass/Vol] 33.0 g/dL 32-36 [facility] Mean platelet volume determi nationOrdered By: Zebulun Beam on 11-01-2024 Platelet mean volume (Bld) [Entitic vol] 9.0 fL 6.2-12.0 [facility] Monocyte percentageOrdered B y: Delfina Yoder on 11-01-2024 Monocytes/100 WBC (Bld) 6.5 % 0-10 [facility] Neutrophil percentageOrdered By: Delfina Yoder on 11-01-2024 Neutrophils/100 WBC (Bld) 51.5 % 47-70 [facility] Nucleated red blood cell per centageOrdered By: Delfina Beam on 11-01-2024 Nucleated RBC/100 WBC (Bld) [Ratio] 0 % 0-5 [facility] Platelet countOrdered By: Adair Yoder on 11-01-2024 Platelets (Bld) [#/Vol] 385 10*3/uL 150-450 [facility] Potassium measurement (mass/ volume)Ordered By: Delfina Yoder on 11-01-2024 Potassium (Unsp spec) [Mass/Vol] 3.5 mmol/L 3.3-5.1 [facility] RBC Auto (Bld) [#/Vol]Ordere d By: Delfina Yoder on 11-01-2024 RBC (Bld) [#/Vol] 3.86 10*6/uL Low 4.2-5.4 [facility] Screening total cholesterol/ high density lipoprotein (HDL) cholesterol ratioOrdered By: Delfina Yoder on 11-01-2024 Cholesterol.total/Lilliam sterol in HDL [Mass ratio] 2.38 {ratio} [facility] Serum creatinine measurement (mass/volume)Ordered By: Delfina Yoder on 11-01-2024 Creatinine [Mass/Vol] 0.72 mg/dL 0.70-1.20 [facility] Serum globulin measurementOr dered By: Delfina Yoder on 11-01-2024 Globulin (S) [Mass/Vol] 4.3 g/dL High 2.2-4.2 [facility] Serum glucose measurement (m ass/volume)Ordered By: Delfina Yoder on 11-01-2024 Glucose [Mass/Vol] 79 mg/dL 70-[address] [facility] Serum or plasma alanine cuevas otransferase (ALT) measurementOrdered By: [facility] on 11-01-2024 ALT [Catalytic activity/Vol] 21 U/L <35 [facility] Serum or plasma albumin naren urement (mass/volume)Ordered By: [facility] on 11-01-2024 Albumin [Mass/Vol] 4.5 g/dL 3.5-5.[address] [facility] Serum or plasma albumin/glob ulin mass ratioOrdered By: [facility] on 11-01-2024 Albumin/Globulin [Mass ratio] 1.0 {ratio} 0.9-2.4 [facility] Serum or plasma alkaline jose sphatase measurementOrdered By: [facility] on 11-01-2024 ALP [Catalytic activity/Vol] 80 U/L 35-104 [facility] Serum or plasma calcium naren urement (mass/volume)Ordered By: [facility] on 11-01-2024 Calcium [Mass/Vol] 9.3 mg/dL 7.6-11.[address] [facility] Serum or plasma cholesterol in HDL measurement (mass/volume)Ordered By: [facility] on 11-01-2024 Cholesterol in HDL [Mass/Vol] 68 mg/dL >40 [facility] Comment on above: National Cholesterol Education Program (NCEP) guidelines:<40 mg/dL: Low HDL-cholesterol (major risk factor for CHD)>= 60 mg/dL: High HDL-cholesterol (negative risk factor for CHD)HDL-cholesterol is affected by a number of factors, e.g. smoking, exercise, hormones, sex and age. Serum or plasma cholesterol measurement (mass/volume)Ordered By: [facility] on 11-01-2024 Cholesterol [Mass/Vol] 163 mg/dL <201 [facility] Comment on above: Cholesterol level, D esirable <200 mg/dLBorderline high cholesterol 200-239 mg/dLHigh cholesterol >=240 mg/dLRecommendations of the NCEP Adult Treatment Panel for the following risk-cutoff thresholds for the [place] population. Serum or plasma urea nitroge n measurement (mass/volume)Ordered By: [facility] on 11-01-2024 Urea nitrogen [Mass/Vol] 10 mg/dL 4-19 [facility] Sodium levelOrdered By: Abdoulaye Yoder on 11-01-2024 Sodium [Moles/Vol] 137 mmol/L 133-[address] [facility] TSH DL <= 0.005 mIU/L QnOrde red By: Delfina Yoder on 11-01-2024 TSH Qn 0.622 uIU/mL 0.300-4.200 [facility] Thyroid Stim Hormone (TSH)on 11-01-2024 TSH 0.622 uIU/mL Normal 0.300-4.200 [facility] Comment on above: Performed By: #### L 500.4050, L501.9985, L501.9520, L500.4100, L100.0100 #### [facility] [address] [place], [place], [id number] Total proteinOrdered By: Lenin Yoder on 11-01-2024 Protein [Mass/Vol] 8.8 g/dL High 5.9-8.[address] [facility] Triglycerides measurementOrd ered By: Delfina Yoder on 11-01-2024 Triglyceride [Mass/Vol] 54 mg/dL <199 [facility] Comment on above: The drugs N-Acetylcy steine and Metamizole may falsely depress this assay. Normal range: <150 mg/dLBorderline High: 150-199 mg/dLHigh: 200-499 mg/dLVery High: >500 mg/dL White blood cell (WBC) count Ordered By: Delfina Yoder on 11-01-2024 WBC (Bld) [#/Vol] 7.4 10*3/uL 4.4-11.[address] [facility] Basic Metabolic Profile (BMP )on 07-02-2024 BUN/CRE 12.4 RATIO Normal 10-20 [facility] Comment on above: Performed By: #### L 500.2500, L100.0100, L700.6800 #### [facility] [address] [place], [place], [id number] CA,Total 9.1 mg/dL Normal 8.5-10.1 [facility] Comment on above: Performed By: #### L 500.2500, L100.0100, L700.6800 #### [facility] [address] [place], [address] Chloride [Moles/Vol] 96 mmol/L Low 98-107 [facility] Comment on above: Performed By: #### L 500.2500, L100.0100, L700.6800 #### [facility] [address] [place], [address] CO2 [Moles/Vol] 23.0 mmol/L Normal 21.0-32.0 [facility] Comment on above: Performed By: #### L 500.2500, L100.0100, L700.6800 #### [facility] [address] [place], [address] Creatinine [Mass/Vol] 0.88 mg/dL Normal 0.55-1.02 [facility] Comment on above: Result Comment: The validity of the calculated GFR GFRAA in patients over 70 years has not been determined. Clinical correlation is essential. Performed By: #### L 500.2500, L100.0100, L700.6800 #### [facility] [address] [place], [address] ECRCL 73.32 ml/min Normal [facility] Comment on above: Performed By: #### L 500.2500, L100.0100, L700.6800 #### [facility] [address] [place], [address] EST GFR - AA 90 mL/min Normal >60 [facility] Comment on above: Result Comment: Afri can Chadian GFR Calc Performed By: #### L 500.2500, L100.0100, L700.6800 #### [facility] [address] [place], [address] GAP 10 Normal 5-15 [facility] Comment on above: Performed By: #### L 500.2500, L100.0100, L700.6800 #### [facility] [address] [place], [address] GFR/1.73 sq M.predicted among non-blacks MDRD (S/P/Bld) [Vol rate/Area] 74 mL/min/{1.73_m2} Normal >60 [facility] Comment on above: Result Comment: Non- GFR Calc Performed By: #### L 500.2500, L100.0100, L700.6800 #### [facility] [address] [place], [address] Glucose [Mass/Vol] 77 mg/dL Normal 74-[address] [facility] Comment on above: Performed By: #### L 500.2500, L100.0100, L700.6800 #### [facility] [address] [place], [address] Potassium [Moles/Vol] 4.0 mmol/L Normal 3.5-5.1 [facility] Comment on above: Performed By: #### L 500.2500, L100.0100, L700.6800 #### [facility] [address] [place], [address] Sodium [Moles/Vol] 129 mmol/L Low 136-[address] [facility] Comment on above: Performed By: #### L 500.2500, L100.0100, L700.6800 #### [facility] [address] [place], [address] Urea nitrogen [Mass/Vol] 11 mg/dL Normal 7-18 [facility] Comment on above: Performed By: #### L 500.2500, L100.0100, L700.6800 #### [facility] [address] [place], [address] Brain/Head without Contrasto n 07-02-2024 Brain/Head without Contrast [facility] Imaging Services [address] [place] [address] Brain/Head without Contrast MR#: [id number] Acct: [id number] Name: VASQUEZ PUGH Rep #: [id number] : 1980 F 44 From: Heath Cochran MD PCP: Care Physician,No Primary Status: REG ER Study: Brain/Head without Contrast Date of Exam: 07/25 Exam# [id number] Ordering Dr: Jasmin Bah PROCEDURE: BRAIN/HEAD WITHOUT CONTRAST REASON FOR EXAM: Intermittent right-sided headache for 1 week. TECHNIQUE: Contiguous axial scans of 3.75 mm slice thicknesses with sagittal and coronal reconstruction images. One or more dose reduction techniques were used (e.g., automated exposure control, adjustment of mA and/or kv according to patient size, use of iterative reconstruction technique). IV CONTRAST: Not given. COMPARISON: None. FINDINGS: No intraparenchymal hemorrhage. No abnormal areas of encephalomalacia. No mass effect or midline shift. Simmons-white matter differentiation is normal. Ventricles and cisterns are appropriately size for patient's age. No extra-axial fluid collections. Cerebellum and posterior fossa unremarkable. Paranasal sinuses normal. Mastoid air cells are normal. Calvarium unremarkable. Soft tissues unremarkable. CT/Brain/Head without Contrast IMPRESSION: No acute intracranial abnormalities are demonstrated. Reading Location: [facility] CC: SIGIFREDO Malone; No Primary Care Physician Editor & Co Founder: Signed Normal [facility] CBC W/Diff, Automatedon Absolute Lymph 2.88 X10 3/uL Normal 0.83-4.51 [facility] Comment on above: Performed By: #### L 500.2500, L100.0100, L700.6800 #### [facility] [address] [place], [place], [id number] Absolute Neut 4.1 X10 3/uL Normal 2.0-7.7 [facility] Comment on above: Performed By: #### L 500.2500, L100.0100, L700.6800 #### [facility] [address] [place], [address] Basophils/100 WBC (Bld) 0.4 % Normal 0-1 [facility] Comment on above: Performed By: #### L 500.2500, L100.0100, L700.6800 #### [facility] [address] [place], [address] Eosinophils/100 WBC (Bld) 0.9 % Normal 0-5 [facility] Comment on above: Performed By: #### L 500.2500, L100.0100, L700.6800 #### [facility] [address] [place], [address] Erythrocyte distribution width (RBC) [Ratio] 13.9 % Normal 11.6-14.6 [facility] Comment on above: Performed By: #### L 500.2500, L100.0100, L700.6800 #### [facility] [address] [place], [address] Hematocrit (Bld) [Volume fraction] 36.6 % Low 37-47 [facility] Comment on above: Performed By: #### L 500.2500, L100.0100, L700.6800 #### [facility] [address] [place], [address] Hemoglobin (Bld) [Mass/Vol] 11.8 g/dL Low 12.0-15.0 [facility] Comment on above: Performed By: #### L 500.2500, L100.0100, L700.6800 #### [facility] [address] [place], [address] IG% 0.100 Normal 0.0-0.9 [facility] Comment on above: Result Comment: IG% - Immature Granulocytes (promyelocytes, myelocytes and metamyelocytes) > 1% indicates that a LEFT SHIFT is Present. Performed By: #### L 500.2500, L100.0100, L700.6800 #### [facility] [address] [place], [address] Lymphocytes/100 WBC (Bld) 37.2 % Normal 19-41 [facility] Comment on above: Performed By: #### L 500.2500, L100.0100, L700.6800 #### [facility] [address] [place], [address] MCH (RBC) [Entitic mass] 28.1 pg Normal 27.0-32.0 [facility] Comment on above: Performed By: #### L 500.2500, L100.0100, L700.6800 #### [facility] [address] [place], [address] MCHC (RBC) [Mass/Vol] 32.2 g/dL Normal 32-36 [facility] Comment on above: Performed By: #### L 500.2500, L100.0100, L700.6800 #### [facility] [address] [place], [address] MCV (RBC) [Entitic vol] 87.1 fL Normal 81-99 [facility] Comment on above: Performed By: #### L 500.2500, L100.0100, L700.6800 #### [facility] [address] [place], [address] Monocytes/100 WBC (Bld) 8.4 % Normal 0-10 [facility] Comment on above: Performed By: #### L 500.2500, L100.0100, L700.6800 #### [facility] [address] [place], [address] Neutrophils/100 WBC (Bld) 53.0 % Normal 47-70 [facility] Comment on above: Performed By: #### L 500.2500, L100.0100, L700.6800 #### [facility] [address] [place], [address] Nucleated RBC (Bld) [#/Vol] 0 10*3/uL Normal 0-5 [facility] Comment on above: Performed By: #### L 500.2500, L100.0100, L700.6800 #### [facility] [address] [place], [address] Platelet mean volume (Bld) [Entitic vol] 9.0 fL Normal 6.2-12.0 [facility] Comment on above: Performed By: #### L 500.2500, L100.0100, L700.6800 #### [facility] [address] [place], [address] Platelets (Bld) [#/Vol] 406 10*3/uL Normal 150-450 [facility] Comment on above: Performed By: #### L 500.2500, L100.0100, L700.6800 #### [facility] [address] [place], [address] RBC (Bld) [#/Vol] 4.20 10*6/uL Normal 4.2-5.4 [facility] Comment on above: Performed By: #### L 500.2500, L100.0100, L700.6800 #### [facility] [address] [place], [address] RDW SD 43.9 fl Normal 35.1-43.9 [facility] Comment on above: Performed By: #### L 500.2500, L100.0100, L700.6800 #### [facility] [address] [place], [address] WBC (Bld) [#/Vol] 7.7 10*3/uL Normal 4.4-11.[address] [facility] Comment on above: Performed By: #### L 500.2500, L100.0100, L700.6800 #### [facility] [address] [place], [address] Emergency Department Summary on 07-02-2024 Emergency Department Summary [facility] Medical Records Department [address] [place] [address] Emergency Department Summary 07/02/24 MR#: [id number] Acct: [id number] Name: VASQUEZ PUGH Rep #: [id number] : 1980 44 From: Jasmin MEI PCP: Care Physician,No Primary Status:DEP ER Location: ED HPI History of Present Illness Chief Complaint: Numb/Ting Narrative Narrative: 44-year-old female with past medical history of hypertension states over the last week she has had intermittent numbness/tingling to her right arm and right leg. She has episodes lasting about 15 minutes multiple times a day where her right arm feels tingling like it is asleep from the shoulder to the elbow. It includes the entire upper arm area but does not radiate below the elbow. She has the same tingling sensation in the right outer thigh. She has no associated weakness. Over the last 3 days she also complains of a left temporal headache. No visual change or speech changes. No nausea or vomiting. No fever chills neck pain or stiffness. She complains of feeling nauseated with decreased appetite but denies abdominal pain or diarrhea. [facility] Medical History no medical history Home Medications ???Medication ???Instructions ???Recorded ???Last Taken ???Type NK 04/14/22 Unknown History Allergy/AdvReac Type Severity Reaction Status Date / Time naproxen Allergy Rash Verified 04/14/22 05:11 shellfish derived Allergy Swelling Verified 04/14/22 05:11 venom-honey bee (bee venom Allergy Swelling Verified 04/14/22 05:11 (honey bee)) Social History Smoking Status: Current every day smoker tobacco type: cigarettes ROS ROS ED ROS Narrative Constitutional: Negative for fever, chills, malaise. Eyes: Negative for visual change. CVS: Negative for chest pain. Respiratory: Negative for shortness of breath, cough. GI: Negative for abdominal pain, nausea, vomiting. Neuro: Positive for headache. EXAM Physical Exam Narrative Exam Narrative: CONST: Patient sitting in no acute distress. EYES: Normal inspection. PERRL, EOMI. ENT: Normal inspection, moist mucous membranes. NECK: Normal inspection. No meningismus. RESP: No respiratory distress, CTAB. CVS: Regular rate and rhythm, no murmur, no gallop. ABD: Soft and nontender, no guarding or rebound, nondistended. SKIN: Color normal, no rash, warm, dry, intact. EXTREMITIES: Normal appearance, no pedal edema. NEURO: Alert and answering questions appropriately. 5/5 upper and lower extremity strength, normal sensation, normal finger-nose and [id number]. No drift. No dysarthria or aphasia. PSYCH: Normal affect. Const Vital Signs: 07/02/24 17:20 07/02/24 19:46 Temperature 97.5 F L Temperature Source Temporal Pulse Rate 122 H 105 H Respiratory Rate 20 H 18 Blood Pressure 155/98 H 137/86 H Blood Pressure Mean 117 103 Pulse Ox 100 99 Oxygen Delivery Method Room Air Room Air Physical Exam Const Vital Signs: 07/02/24 17:20 07/02/24 19:46 Temperature 97.5 F L Temperature Source Temporal Pulse Rate 122 H 105 H Respiratory Rate 20 H 18 Blood Pressure 155/98 H 137/86 H Blood Pressure Mean 117 103 Pulse Ox 100 99 Oxygen Delivery Method Room Air Room Air MDM MDM MDM Narrative Medical decision making narrative: Patient reports intermittent paresthesias to her right arm in the humeral region and the right outer thigh. She also reports a few days of a headache. She is awake and alert in no distress. BP 155/98, HR 122, otherwise normal vital signs. She has a completely normal neurological exam with NIH of 0. Labs show normal white count of 7.7. Stable hemoglobin 11.8. Sodium is 129, otherwise normal chemistry panel. test negative. Her hyponatremia could be from her hydrochlorothiazide. CT brain shows no acute findings. I do not think her symptoms match with the stroke presentation. She does have a sister who has multiple sclerosis and I discussed the possibility of demyelinating disease. She will follow-up with her primary care doctor and neurology but was told to return if symptoms worsen. She was comfortable with this plan and discharged in stable condition. Lab Data Attestation: I reviewed the patient's lab results. Labs: Laboratory Results - last 24 hr 07/02/24 18:12 WBC 7.7 RBC 4.20 Hgb 11.8 L Hct 36.6 L MCV 87.1 MCH 28.1 MCHC 32.2 RDW Std Deviation 43.9 RDW Coeff of Randi 13.9 Plt Count 406 MPV 9.0 Immature Gran % (Auto) 0.100 Neut % (Auto) 53.0 Lymph % (Auto) 37.2 Parmer % (Auto) 8.4 Eos % (Auto) 0.9 Baso % (Auto) 0.4 Absolute Neuts (auto) 4.1 Absolute Lymphs (auto) 2.88 Nucleated RBC % 0 Sodium (more content not included)... Normal [facility] ,Serum,hCG Quali.on 07-02-2024 HCG, SERUM QUAL Negative Normal [facility] Comment on above: Performed By: #### L 500.2500, L100.0100, L700.6800 #### [facility] [address] [place], [address] CNCOon 01-04-2018 CNCO HNO ID: [id number]: Mammography CoordinatorService: (none)Author Type: PhysicianType: LetterFiled: 01/05/2018 11:32 PMNote Text:January 04, 2018 PID: [id number] D. [id number] [address]Iwqa Ms. Pugh,We are pleased to inform you that the results of your recent breastimaging exam on 01/04/2018 are normal.Your mammogram demonstrates that you have dense breast tissue, which couldhide abnormalities. Dense breast tissue, in and of itself, is arelatively common condition. Therefore, this information is not providedto cause undue concern; rather, it is to raise your awareness and promotediscussion with your health care provider regarding the presence of densebreast tissue in addition to other risk factors.Early detection of cancer is very important. We also understandrecommendatio ns regarding breast cancer screening are controversial.Please discuss with your primary care provider which strategy is best foryou and whether a mammogram is right for you.Your imaging studies and report will be kept on file at [facility] part of your permanent medical record and are available for yourcontinuing care.Thank you for allowing us to help in meeting your health care needs.Sincerely,Dr. Galloway [facility] (Normal under 40) Normal [facility] CNCO HNO ID: [id number]: Mammography CoordinatorService: (none)Author Type: PhysicianType: LetterFiled: 01/05/2018 11:32 PMNote Text:January 04, 2018 PID: [id number] D. [id number] [address]Roxb Ms. Pugh,We are pleased to inform you that the results of your recent breastimaging exam on 01/04/2018 are normal.Your mammogram demonstrates that you have dense breast tissue, which couldhide abnormalities. Dense breast tissue, in and of itself, is arelatively common condition. Therefore, this information is not providedto cause undue concern; rather, it is to raise your awareness and promotediscussion with your health care provider regarding the presence of densebreast tissue in addition to other risk factors.Early detection of cancer is very important. We also understandrecommendatio ns regarding breast cancer screening are controversial.Please discuss with your primary care provider which strategy is best foryou and whether a mammogram is right for you.Your imaging studies and report will be kept on file at [facility] part of your permanent medical record and are available for yourcontinuing care.Thank you for allowing us to help in meeting your health care needs.Sincerely,Dr. Galloway [facility] (Normal under 40) Normal [facility] DIAGNOSTIC BILon 018 [facility] DIAGNOSTIC YEMI * * *Final Report* * *DATE OF EXAM: Jan 04 2018 1:46PM EMILIE 0620 - [facility] DIAGNOSTIC YEMI / REASON: RIGHT NIPPLE DISHCHARGEBILATERAL DX * * * * Physician Interpretation * * * *RESULT: #[id number] - [facility] DIAGNOSTIC BILBILATERAL DIGITAL DIAGNOSTIC MAMMOGRAM WITH CAD: 01/04/2018HISTORY: Right Nipple Discharge, \ Bilateral Dx.RESULT:TECHNIQUE: The study was acquired using full field digital technology and interpreted from soft copy.Current study was also evaluated with a Computer Aided Detection (CAD).Comparison is made to exam dated: 08/20/2008 mammogram.The tissue of both breasts is extremely dense, which lowers the sensitivity of mammography.No significant masses, calcifications, or other findings are seen in either breast.NEGATIVEThere is no abnormality seen in the right breast to correspond with the area of clinical concern.There is no mammographic evidence of malignancy.#[id number] - [facility] [employer] BREAST [employer] RTULTRASOUND OF RIGHT BREAST: 01/04/2018RESULT:Comparis on is made to exam dated: 08/20/2008 mammogram.Ultrasound of the right breast was performed. Simmons scale images of the real-time examination were reviewed.There is a benign 2 mm cyst in the right breast at 12 o'clock in the retroareolar region.IMPRESSION: BENIGN FINDINGThere is no sonographic evidence of malignancy.The 2 mm cyst in the right breast is benign.There is no abnormality seen in the right breast to correspond with the area of clinical concern.Return to annual mammogram screening schedule is recommended.Maria Guadalupe Quinonez/veena:01/04/2018 14:26:18Imaging Technologist: Cierra KNIGHT(R)(M), [facility] Centerletter sent: Normal under 40 OVERALL STUDY BIRADS: 2 Benign findingTranscriptionist : Micha Date/Time: Jan 04 2018 1:48PDictated by: Goyo MARION examination was interpreted and the report reviewed and electronically signed by: MARIA GUADALUPE HART DO on Jan 04 2018 2:26PM [id number] CN Normal [facility] [employer] BREAST [employer] RTon 01-04 [facility] [employer] BREAST [employer] RT * * *Final Report* * *DATE OF EXAM: Jan 04 2018 2:19PM MAURA 0594 - [facility] RT / REASON: RIGHT NIPPLE DISHCHARGEBILATERAL DX * * * * Physician Interpretation * * * * #[id number] - [facility] DIAGNOSTIC BILBILATERAL DIGITAL DIAGNOSTIC MAMMOGRAM WITH CAD: 01/04/2018HISTORY: Right Nipple Discharge, \ Bilateral Dx.RESULT:TECHNIQUE: The study was acquired using full field digital technology and interpreted from soft copy.Current study was also evaluated with a Computer Aided Detection (CAD).Comparison is made to exam dated: 08/20/2008 mammogram.The tissue of both breasts is extremely dense, which lowers the sensitivity of mammography.No significant masses, calcifications, or other findings are seen in either breast.NEGATIVEThere is no abnormality seen in the right breast to correspond with the area of clinical concern.There is no mammographic evidence of malignancy.#[id number] - [facility] [employer] RTULTRASOUND OF RIGHT BREAST: 01/04/2018RESULT:Comparis on is made to exam dated: 08/20/2008 mammogram.Ultrasound of the right breast was performed. Simmons scale images of the real-time examination were reviewed.There is a benign 2 mm cyst in the right breast at 12 o'clock in the retroareolar region.IMPRESSION: BENIGN FINDINGThere is no sonographic evidence of malignancy.The 2 mm cyst in the right breast is benign.There is no abnormality seen in the right breast to correspond with the area of clinical concern.Return to annual mammogram screening schedule is recommended.Maria Guadalupe Quinonez/veena:01/04/2018 14:26:18Imaging Technologist: Cierra BRICENO)(M), [facility] Centerletter sent: Normal under 40 OVERALL STUDY BIRADS: 2 Benign findingTranscriptionist : Micha Date/Time: Jan 04 2018 1:48PDictated by : Goyo MARION examination was interpreted and the report reviewed and electronically signed by: MARIA GUADALUPE HART DO on Jan 04 2018 2:26PM [id number] CN Normal [facility] PROGRESSon 01-04-2018 Protein mass conc HNO ID: [id number]: Lori HobbsmikService: (none)Author Type: SonographerType: Progress NotesFiled: 01/04/2018 2:30 PMNote Text: Radiology Service Progress NotePATIENT NAME: Vasquez PughMRN: [id number] OF SERVICE: January 04, 2018TIME: 2:29 PMPATIENT IDENTITY VERIFICATION COMPLETED USING TWO (2) METHODS: Patientconfirmed name verbally and Date of .PATIENT GENDER DATA: Female. status: : NoBreastfeeding status: N/APATIENT RELEVANT IMPLANT DATA REVIEWED: Not ApplicableRADIOLOGY DEPARTMENT: UltrasoundPERIPHERAL IV DATA: Not applicableSIGNED BY: LORI MILNER RDMS RVTAugust 2017 2:29 PM Normal [facility] CNOVon 01-03-2018 CNOV Office Visit (WOOB) LEXYVASQUEZ East ([id number]) 1980 FDate Time Provider Department01/03/18 11:00 AM CHELY MOSHER (JOSE L) WOOB During your visit today, we recorded the following information about you: Blood pressure Weight Last Period 122/82 63.6 kg 12/29/17Chely Mosher APRN.CNP 01/03/2018 11:22 AM Enrico [place] Lexy is a 37 year old who presents with bleeding and irritation inthe right breast. Pt is also interesting in starting on the Nuvaring to helpwith irregular menses since her tubal.Her history includes: No prior breast problems, fever - no, chills - no.OBJECTIVE:LUNGS: normal inspiratory rateBREASTS: Symmetrical to inspection., No dimpling or skin changes., Normalconsistency, no palpable masses., Normal nipples without discharge., Noaxillary lymphadenopathy.IMPRESS ION:Report of bleeding and irritation of the right breastPLAN:Diagnostic mammogramBreast ultrasoundNuvaring to help with menstrual dysfunctionI have reviewed and updated past medical and surgical history, medications andallergies.Chely Mosher APRN.CNPReferring Provider: SELF [200]Allergies As of Date: 01/03/2018 Noted Allergy ReactionMELOXICAM 08/25/2013 8 - GI UpsetNAPROXEN 04/19/2008 8 - GI Upset 11 - VomitingDate Reviewed: 01/03/2018Reviewed by: Chely Ramachandran) [place] - Fully AssessedReason for Visit: Breast Problem [16]Primary Visit Diagnosis:Nipple discharge [N64.52] Other Visit Diagnosis:Breast pain [N64.4]Order(s):US BREAST LTD RT [5938921] Order #: [id number] FUTURE [facility] BILAT [[id number]] Order #: [id number] FUTURE Etonogestrel-Ethinyl Estradiol (NUVARING) 0.12-0.015 mg/24 hr vaginal ringUse 1 Each vaginally as directed. INSERT ONE(1) RING VAGINALLY AND LEAVE IN PLACE FOR THREE WEEKS, THEN REMOVE FOR 1 WEEK.Disp: 3 EachRfl: 2Prescriptions as of 01/03/2018 Sig: IBUPROFEN 600 MG TABLET Take 1 tablet by mouth every * ETONOGESTREL-ETHINYL ESTRADIO* Use 1 Each vaginally as direc*Problem List As Of Date 01/03/2018 Noted Resolved CERVICALGIA [M54.2] INVALID FOR* Fracture of left distal radius [S52.502A] INVALID FOR* Goiter [E04.9] INVALID FOR* Family history of breast cancer in female [Z80.*INVALID FOR* More...Prescriptions ordered this encounter Disp Refills Start End ETONOGESTREL-ETHINYL ESTRADIOL 0.12 * 3 Ea* 2 01/03/2018 Class: Print RX Route: VAGINAL Sig: Use 1 Each vaginally as directed. INSERT ONE(1) RING VAGINALLY AND LEAVE IN PLACE FOR THREE WEEKS, THEN REMOVE FOR 1 WEEK.Medications Discontinued During This Encounter erythromycin (ILOTYCIN) ophthalmic o* 1 Tu* 1 04/05/2014 01/03/2018 Route: LEFT EYE Sig: Use 1 application in the left eye four times daily. Patient not taking: Reported on 01/03/2018 Disc: Reason for discontinue is not on file. hydrocortisone (ANUSOL-HC) 25 mg sup* 30 S* 2 11/26/2015 01/03/2018 Route: RECTAL Si Suppository by RECTAL route daily at bedtime. Patient not taking: Reported on 01/03/2018 Disc: Reason for discontinue is not on file. hydrOXYzine HCl (ATARAX) 25 mg tablet 30 t* 0 05/14/2014 01/03/2018 Route: ORAL Sig: Take 1 tablet by mouth every 6 hours as needed for Itching/Rash. Patient not taking: Reported on 01/03/2018 Disc: Reason for discontinue is not on file. peg 3350-electrolytes (COLYTE) 240-2* 1 Co* 0 11/26/2015 01/03/2018 Sig: Take 4000 ml as directed. Follow written instructions from the doctor's office. Patient not taking: Reported on 01/03/2018 Disc: Reason for discontinue is not on file. Status:Closed by CHELY MOSHER on 01/03/18 Normal [facility] PROGRESSon 01-03-2018 Protein mass conc HNO ID: [id number]: Chely (Jose L) MetcalfService: (none)Author Type: Nurse PractitionerType: Progress NotesFiled: 01/03/2018 11:22 AMNote Text:Vasquez Pugh is a 37 year old who presents with bleeding andirritation in the right breast. Pt is also interesting in starting on theNuvaring to help with irregular menses since her tubal.Her history includes: No prior breast problems, fever - no, chills - no.OBJECTIVE:LUNGS: normal inspiratory rateBREASTS: Symmetrical to inspection., No dimpling or skin changes., Normalconsistency, no palpable masses., Normal nipples without discharge., Noaxillary lymphadenopathy.IMPRESS ION:Report of bleeding and irritation of the right breastPLAN:Diagnostic mammogramBreast ultrasoundNuvaring to help with menstrual dysfunctionI have reviewed and updated past medical and surgical history, medicationsand allergies.Chely Mosher APRN.JOSE L Normal [facility] Encounters Encounter Date Encounter Type Care Provider Facility Start: 11-01-2024 End: 11-01-2024 ambulatory Zebulun Beam [employer] Work Phone: [facility] Work Phone: Start: 11-01-2024 End: 11-01-2024 Patient encounter procedure Zebulun Beam [employer] -Laboratory [facility] Reyes Start: 11-01-2024 End: 11-01-2024 ambulatory Zebulun Beam VSC Facility:[facility] Start: 07-02-2024 End: 07-02-2024 Emergency department patient visit Malou Noble Facility:[facility] Start: 01-04-2018 End: 01-04-2018 [facility] Start: 01-03-2018 End: 01-04-2018 Patient encounter CHELY (JOSE L) [facility] Payers Date Payer Category Payer Unknown [id number] 2024 Self-pay 2024 Unknown [id number] 2024 [id number] Unknown [employer] [id number] Unknown [id number] Unknown [id number] Unknown [id number] Social History Date Type Detail Facility [facility]: [facility] Start: 06-26-2017 Alcohol Alcohol [facility] Start: 1980 Sex Assigned At Female [facility] Evaluation note Note Date & Type Note Facility Evaluation note No assessment information availa ble [facility] Work Phone: Reason for referral (narrative) Note Date & Type Note Facility Reason for referral (narrative) No reason for referral information available [facility] Work Phone: Summary Purpose Family History No Family History Records FoundNo Family History Records Found Advance Directives No Advanced Directives Records Found Advance Directive Response Recorded Date/ Time Advance Directives No June 25, 2017 4:04pm Additional Source Comments INFORMATION SOURCE (unrecogn ized section and content) DATE CREATED AUTHOR 01/11/2018 [facility] DATE CREATED AUTHOR AUTHOR'S ORGANIZ ATNA 01/15/2025 [facility] Care Teams (unrecognized sec tion and content) Team Status: Active Member Role Status Dates Delfina Yoder VSC, [employer] Primary Care Provider Active Team Status: Inactive Member Role Status Dates Delfina Yoder VSC, [employer] Primary Care Provider Active Start: November 01, 2024 End: November 01, 2024 Delfina Yoder VSC, [employer] Attending Provider Active Start: November 01, 2024 End: November 01, 2024 Goals (unrecognized section and content) Goals may be documented in a n alternate section FOR RECORDS PERTAINING TO PATIENTS WHO ARE OR HAVE BEEN ENROLLED IN A CHEMICAL DEPENDENCY/SUBSTANCEABUSE PROGRAM, SOME INFORMATION MAY BE OMITTED. This clinical summary was aggregated from multiple sources. Caution should be exercised in using it in the provision of clinical care. This summary normalizes information from multiple sources, and as a consequence, information in this document may materially change the coding, format and clinical context of patient data. In addition, data may be omitted in some cases. CLINICAL DECISIONS SHOULD BE BASED ON THE PRIMARY CLINICAL RECORDS. [employer] provides no warranty or guarantee of the accuracy or completeness of information in this document.
[2025-03-19 16:42] LABS: Hematocrit 36.1 % (37-47); Hemoglobin 11.5 g/dL (12.0-15.0); Mean Corp Hgb Conc 31.9 g/dL (32-36); Mean Corpuscular Volume 88.5 fL (81-99); Mean Platelet Vol. 9.4 fl (6.2-12.0); Platelet Count 400 K/mm3 (150-450); RBC Distribution Width CV 14.4 % (11.6-14.6); RBC Distribution Width SD 46.5 fl (35.1-43.9); Red Blood Count 4.08 M/mm3 (4.2-5.4); White Blood Count 6.3 K/mm3 (4.4-11.0)
[2025-03-19 17:20] LABS: FOLATES,SERUM (FOLIC ACID) 8.71 ng/mL (4.60-34.80)
[2025-03-19 17:32] LABS: Anion Gap 14 (5-15); BUN 11 mg/dL (4-19); BUN/Creat Ratio 14.7 RATIO (10-20); Calcium,Total 9.3 mg/dL (7.6-11.0); Carbon Dioxide 21.9 mmol/L (21.0-32.0); Chloride 101 mmol/L (98-108); Glucose 89 mg/dL (70-99); HIV Nonreactive (Nonreactive); Potassium 4.3 mmol/L (3.3-5.1); Vitamin B12 345 pg/mL (180-914)
[2025-03-19 19:23] LABS: Iron 61 ug/dL (50-170); Iron Binding Capacity,Total 349 ug/dL (250-450); Iron Binding Capacity,Unsat 288 ug/dL (228-428)
[2025-03-21 04:07] LABS: HEPATITIS B SURFACE AG Negative (Negative); Hep C Antibodies Non Reactive (Non Reactive)
[2025-03-23 17:36] LABS: Syphilis Antibodies Nonreactive (Nonreactive)
== END | disposition home or self-care (01) ==
LOC: VSLAB 11:07
DX: I10 Essential (primary) hypertension (principal); D64.9 Anemia, unspecified; Z72.51 High risk heterosexual behavior
CPT/HCPCS: 36415; 80048; 80074; 82607; 82746; 83540; 83550; 85027; 86703; 86780